=== PATIENT | female | born 1980 | race American Indian/Alaskan Native ===

== ENCOUNTER 2018-12-10 18:54 | Inpatient (IN) | payer BC ==
--- NOTE | 2018-12-10 19:22 | Event Note ---
ED Screening Note ED Screening Note: substernal CP that began three days ago had right arthroscopy no SOB (+) N/V that began today no diarrhea no radiation of pain LNMP last week PMHx Lupus, fibromyalgia allergy: vicodin non smoker + occ drinker no drug use This initial assessment/diagnostic orders/clinical plan/treatment(s) is/are subject to change based on patients health status, clinical progression and re- assessment by fellow clinical providers in the ED. Further treatment and workup at subsequent clinical providers discretion. Patient/guardian urged not to elope from the ED as their condition may be serious if not clinically assessed and managed. Initial orders include: CP protocol
[2018-12-10 20:01] LABS: Basophils % (Auto) 0.3 % (0.0-1.8); Hematocrit 36.5 % (30.3-42.9); Hemoglobin 12.5 gm/dl (10.1-14.3); Lymphocytes # (Auto) 0.8 K/mm3 (1.2-5.4); Lymphocytes % (Auto) 11.4 % (13.4-35.0); Mean Corpuscular HGB Conc 34 % (30-34); Mean Corpuscular Volume 89 fl (79-97); Monocytes # (Auto) 0.8 K/mm3 (0.0-0.8); Monocytes % (Auto) 10.9 % (0.0-7.3); Platelet Count 282 K/mm3 (140-440); Red Blood Count 4.08 M/mm3 (3.65-5.03); Red Cell Distribution Width 15.6 % (13.2-15.2)
[2018-12-10 20:18] LABS: Alanine Aminotransferase 25 units/L (7-56); Albumin 4.1 g/dL (3.9-5); BUN/Creatinine Ratio 6; Blood Urea Nitrogen 6 mg/dL (7-17); Calcium 9.4 mg/dL (8.4-10.2); Hemolysis Index 10
--- NOTE | 2018-12-10 21:36 | XRay Report ---
CHEST PA AND LATERAL VIEWS INDICATION: Chest Pain. COMPARISON: None FINDINGS: Support devices: None Heart: Normal Lungs/Pleura: No acute pulmonary or pleural findings. IMPRESSION: 1. Negative study Signer Name: Troy Courtney MD Signed: 12/10/2018 9:31 PM Workstation Name: [id number]
--- NOTE | 2018-12-10 22:02 | Emergency Department Report ---
ED Chest Pain HPI - General Chief Complaint: Chest Pain Stated Complaint: RT KNEE/CHEST PAIN Time Seen by Provider: 12/10/18 19:20 Source: patient Mode of arrival: Ambulatory Limitations: No Limitations - History of Present Illness Initial Comments: 37-year-old female with history of lupus, fibromyalgia presents to ED with complaint of chest pain and right leg pain and swelling. Patient reports recent lateral meniscus right knee surgery approximately 1.5 months ago. Patient states surgery went well, pain had resolved in the knee until one week ago. Patient states she began having pain in the back of her right knee, and swelling in the knee and right lower leg. 3 days ago, patient reports onset of sharp substernal chest pain, that was initially intermittent however is not constant, worse with deep breaths. Denies fever or cough. Patient reports she has had similar chest pain in the past, and was told it was inflammation due to her milla pedersen MD Complaint: chest pain -: days(s) (3) Onset: during rest Pain Location: substernal Pain Radiation: none Severity: moderate Severity scale (0 -10): 7 Quality: sharp Consistency: constant Improves With: nothing Worsens With: inspiration Context: recent surgery re: dyspnea. denies: nausea, vomting, diaphoresis Other Symptoms: leg swelling, palpitations. denies: cough, fever - Related Data Allergies Allergy/AdvReac Type Severity Reaction Status Date / Time acetaminophen [From Vicodin] Allergy Itching Verified 12/10/18 18:56 hydrocodone [From Vicodin] Allergy Itching Verified 12/10/18 18:56 shellfish derived Allergy Itching Verified 12/10/18 18:56 Heart Score - HEART Score History: Slightly suspicious EKG: Normal Age: < 45 Risk factors: No known risk factors Troponin: < normal limit HEART Score: 0 ED Review of Systems ROS: Stated complaint: RT KNEE/CHEST PAIN Other details as noted in HPI Comment: All other systems reviewed and negative Constitutional: denies: chills, fever Respiratory: shortness of breath. denies: cough Cardiovascular: chest pain, palpitations Musculoskeletal: other (reports right leg pain and swelling) ED Past Medical Hx - Past Medical History Previous Medical History?: Yes Hx Hypertension: No Hx CVA: No Hx Heart Attack/AMI: No Hx Congestive Heart Failure: No Hx Diabetes: No Hx Deep Vein Thrombosis: No Hx Pulmonary Embolism: No Hx GERD: No Hx Liver Disease: No Hx Renal Disease: No Hx of Cancer: No Hx Sickle Cell Disease: No Hx Arthritis: No Hx Headaches / Migraines: No Hx Seizures: No Hx Kidney Stones: No Hx Psychiatric Treatment: No Hx Asthma: Yes Hx COPD: No Hx Tuberculosis: No Hx Dementia: No Hx HIV: No - Surgical History Past Surgical History?: Yes Hx Coronary Stent: No Hx Open Heart Surgery: No Hx Pacemaker: No Hx Internal Defibrillator: No Hx Cholecystectomy: No Hx Appendectomy: No Hx Breast Surgery: No Additional Surgical History: right knee replacement - Social History Smoking Status: Never Smoker Substance Use Type: Alcohol ED Physical Exam - General Limitations: No Limitations General appearance: alert, in no apparent distress - Head Head exam: Present: atraumatic, normocephalic - Eye Eye exam: Present: normal appearance - ENT ENT exam: Present: mucous membranes moist - Neck Neck exam: Present: normal inspection - Respiratory Respiratory exam: Present: normal lung sounds bilaterally. Absent: respiratory distress - Cardiovascular Cardiovascular Exam: Present: normal rhythm, tachycardia - GI/Abdominal GI/Abdominal exam: Present: soft. Absent: distended - Extremities Exam Extremities exam: Present: other (right posterior knee tenderness; mild swelling to right lower leg; no erythema present) - Neurological Exam Neurological exam: Present: alert, oriented X3 - Psychiatric Psychiatric exam: Present: normal affect, normal mood - Skin Skin exam: Present: warm, dry, intact, normal color ED Course Vital Signs 12/10/18 12/10/18 12/10/18 19:18 19:21 22:15 Temperature 98.6 F 100.2 F H Pulse Rate 86 134 H Respiratory 14 14 33 H Rate Blood Pressure 132/82 134/77 Blood Pressure 134/77 [Right] O2 Sat by Pulse 100 100 99 Oximetry 12/10/18 12/10/18 12/11/18 22:30 23:37 00:01 Temperature Pulse Rate 136 H 129 H 137 H Respiratory 14 24 24 Rate Blood Pressure 121/78 145/97 150/99 Blood Pressure [Right] O2 Sat by Pulse Oximetry 12/11/18 00:59 Temperature 100.4 F H Pulse Rate 143 H Respiratory 26 H Rate Blood Pressure Blood Pressure 108/62 [Right] O2 Sat by Pulse 98 Oximetry ED Medical Decision Making - Lab Data Result diagrams: 12/11/18 00:48 12/11/18 00:48 - EKG Data -: EKG Interpreted by Me EKG shows normal: sinus rhythm, axis, intervals, QRS complexes, ST-T waves Rate: tachycardia - EKG Data Interpretation: no acute changes - Radiology Data Radiology results: report reviewed, image reviewed - Medical Decision Making - 37 yo F with right lower leg pain, chest pain, tachycardia - D-dimer elevated - V/Q scan obtained b/c CT scanner is broken and unable to perform CTAs (of note, pt has shellfish allergy reported but states has had IV contrast before w/o incident) - pt developed low-grade temp while in the ER, however, WBCs normal, CXR normal - EKG shows sinus tach, no ST changes; troponin negative - pt's tachycardia remains depite IV fluids and motrin - spoke w/ hospitalist, Dr Saleem, will admit the pt for further management - Differential Diagnosis PE, DVT, pneumonia, pulm edema, ACS Critical care attestation.: If time is entered above; I have spent that time in minutes in the direct care of this critically ill patient, excluding procedure time. ED Disposition Clinical Impression: Acute chest pain, Tachycardia Disposition: OP ADMIT IP TO THIS HOSP Is pt being admited?: Yes Condition: Stable Time of Disposition: 00:09
[2018-12-10] MEDS ORDERED: MORPHINE IV ONE (22:12)
[2018-12-10] MEDS ORDERED: ZOFRAN IV ONE (22:12)
[2018-12-10] MEDS ORDERED: NACL 0.9% 1000 ML 1,000 ML IV ONE (22:12)
--- NOTE | 2018-12-10 23:20 | Nuclear Medicine Report ---
Nuclear medicine ventilation/perfusion lung scan Indication: Shortness of breath Technique: 22.2 mCi of Xenon-133 were given by inhalation. 3.1 mCi of Tc 99m MAA were given by IV. Findings: Comparison with chest radiograph from earlier the same day. Wash-in, equilibrium, and wash-out phases of ventilation are normal. No air-trapping is seen. Perfusion images are unremarkable; specifically, no wedge-shaped, pleural-based, segmental defects ar e seen. Impression: Normal V/Q scan. Signer Name: Catracho Mccarthy MD Signed: 12/10/2018 11:15 PM Workstation Name: [id number]
[2018-12-10] MEDS ORDERED: IBUPROFEN PO ONE (23:42)
[2018-12-11 00:06] LABS: INR 1.2 (0.87-1.13); Partial Thromboplastin Time 30.2 Sec. (24.2-36.6)
[2018-12-11] MEDS ORDERED: NACL 0.9% 1000 ML 1,000 ML IV ONE (00:10)
[2018-12-11] MEDS ORDERED: TYLENOL PO PRN (00:32)
[2018-12-11] MEDS ORDERED: ZOFRAN IV PRN (00:32)
[2018-12-11] MEDS ORDERED: SODIUM CHLORIDE FLUSH SYRINGE 10 ML IV PRN ×2 (00:32)
--- NOTE | 2018-12-11 00:32 | History and Physical Report ---
History of Present Illness Date of examination: 12/11/18 Date of admission: 12/11/18 Chief complaint: cp History of present illness: 37-year-old female with history of lupus, fibromyalgia presents to ED with complaint of chest pain, right leg pain and swelling. Patient reports recent and lateral meniscus right knee surgery approximately 1.5 months ago. Patient states surgery went well, pain had resolved in the knee until one week ago. Patient states she began having pain in the back of her right knee, and swelling in the knee and right lower leg. 3 days ago, patient reports onset of sharp substernal chest pain, that was initially intermittent however is now constant, worse with deep breaths. Denies fever or cough. Patient reports she has had similar chest pain in the past, and was told it was inflammation due to her lupus. The patient's chest pain is reproducible with palpation. She denies any associated symptoms of shortness of breath, nausea or vomiting. No diaphoresis. Past History Past Medical History: other (fibromyalgia, SLE) Past Surgical History: Other (meniscus repair) Social history: no significant social history Family history: no significant family history Medications and Allergies Allergies Allergy/AdvReac Type Severity Reaction Status Date / Time acetaminophen [From Vicodin] Allergy Itching Verified 12/10/18 18:56 hydrocodone [From Vicodin] Allergy Itching Verified 12/10/18 18:56 shellfish derived Allergy Itching Verified 12/10/18 18:56 Active Meds: Active Medications Sodium Chloride (Nacl 0.9% 1000 Ml) 1,000 mls @ 999 mls/hr IV BOLUS ONE Stop: 12/11/18 01:10 Review of Systems All systems: negative Exam - Constitutional Vitals: Temp Pulse Resp BP Pulse Ox 100.2 F H 137 H 24 150/99 99 12/10/18 22:15 12/11/18 00:01 12/11/18 00:01 12/11/18 00:01 12/10/18 22:15 General appearance: Present: no acute distress, well-nourished - EENT Eyes: Present: PERRL ENT: hearing intact, clear oral mucosa - Neck Neck: Present: supple, normal ROM - Respiratory Respiratory effort: normal Respiratory: bilateral: CTA - Cardiovascular Heart Sounds: Present: S1 & S2. Absent: rub, click - Extremities Extremities: pulses symmetrical, No edema Peripheral Pulses: within normal limits - Abdominal General gastrointestinal: Present: soft, non-tender, non-distended, normal bowel sounds Female genitourinary: Present: normal - Integumentary Integumentary: Present: clear, warm, dry - Musculoskeletal Musculoskeletal: strength equal bilaterally, other (chest tenderness to palpation, positive Homans and tenderness to right calf) - Psychiatric Psychiatric: appropriate mood/affect, intact judgment & insight - Neurologic Neurologic: CNII-XII intact, moves all extremities Results - Labs CBC & Chem 7: 12/10/18 19:37 12/10/18 19:37 Labs: Laboratory Last Values WBC 7.4 K/mm3 (4.5-11.0) 12/10/18 19:37 RBC 4.08 M/mm3 (3.65-5.03) 12/10/18 19:37 Hgb 12.5 gm/dl (10.1-14.3) 12/10/18 19:37 Hct 36.5 % (30.3-42.9) 12/10/18 19:37 MCV 89 fl (79-97) 12/10/18 19:37 MCH 31 pg (28-32) 12/10/18 19:37 MCHC 34 % (30-34) 12/10/18 19:37 RDW 15.6 % (13.2-15.2) H 12/10/18 19:37 Plt Count 282 K/mm3 (140-440) 12/10/18 19:37 Lymph % (Auto) 11.4 % (13.4-35.0) L 12/10/18 19:37 [place] % (Auto) 10.9 % (0.0-7.3) H 12/10/18 19:37 Eos % (Auto) 0.0 % (0.0-4.3) 12/10/18 19:37 Baso % (Auto) 0.3 % (0.0-1.8) 12/10/18 19:37 Lymph # 0.8 K/mm3 (1.2-5.4) L 12/10/18 19:37 [place] # 0.8 K/mm3 (0.0-0.8) 12/10/18 19:37 Eos # 0.0 K/mm3 (0.0-0.4) 12/10/18 19:37 Baso # 0.0 K/mm3 (0.0-0.1) 12/10/18 19:37 Seg Neutrophils % 77.4 % (40.0-70.0) H 12/10/18 19:37 Seg Neutrophils # 5.7 K/mm3 (1.8-7.7) 12/10/18 19:37 PT 14.9 Sec. (12.2-14.9) 12/10/18 23:44 INR 1.20 (0.87-1.13) H 12/10/18 23:44 APTT 30.2 Sec. (24.2-36.6) 12/10/18 23:44 362.58 ng/mlDDU (0-234) H 12/10/18 19:37 Sodium 133 mmol/L (137-145) L 12/10/18 19:37 Potassium 4.0 mmol/L (3.6-5.0) 12/10/18 19:37 Chloride 99.6 mmol/L (98-107) 12/10/18 19:37 Carbon Dioxide 21 mmol/L (22-30) L 12/10/18 19:37 16 mmol/L 12/10/18 19:37 BUN 6 mg/dL (7-17) L 12/10/18 19:37 1.0 mg/dL (0.7-1.2) 12/10/18 19:37 Estimated GFR > 60 ml/min 12/10/18 19:37 6 % 12/10/18 19:37 Glucose 100 mg/dL (65-100) 12/10/18 19:37 Calcium 9.4 mg/dL (8.4-10.2) 12/10/18 19:37 0.50 mg/dL (0.1-1.2) 12/10/18 19:37 AST 30 units/L (5-40) 12/10/18 19:37 ALT 25 units/L (7-56) 12/10/18 19:37 38 units/L (35-129) 12/10/18 19:37 < 0.010 ng/mL (0.00-0.029) 12/10/18 22:26 8.8 g/dL (6.3-8.2) H 12/10/18 19:37 4.1 g/dL (3.9-5) 12/10/18 19:37 0.9 % 12/10/18 19:37 HCG, Qual Negative (Negative) 12/10/18 19:37 Assessment and Plan Assessment and plan: Chest pain. Etiology likely secondary to costochondritis +/- lupus flare. Chest x-ray negative. Costochondritis. Toradol/pain control. Elevated d-dimer. VQ scan negative. Check lower extremity Dopplers. Sinus tachycardia. Monitor on telemetry. Etiology may secondary to physiologic response to pain. Right lower extremity pain. As above. SLE. Continue home medications. Fibromyalgia. Supportive care.
[2018-12-11 01:10] LABS: Basophils % (Auto) 0.2 % (0.0-1.8); Hematocrit 34.5 % (30.3-42.9); Hemoglobin 11.6 gm/dl (10.1-14.3); Lymphocytes % (Auto) 11.6 % (13.4-35.0); Mean Corpuscular HGB Conc 34 % (30-34); Mean Corpuscular Volume 92 fl (79-97); Monocytes # (Auto) 0.7 K/mm3 (0.0-0.8); Monocytes % (Auto) 8.5 % (0.0-7.3); Platelet Count 242 K/mm3 (140-440); Red Blood Count 3.77 M/mm3 (3.65-5.03); Red Cell Distribution Width 15.2 % (13.2-15.2)
[2018-12-11] MEDS ORDERED: TORADOL ONE (01:27)
[2018-12-11] MEDS: TORADOL IV SCH ×6 (01:28→21:48)
[2018-12-11 01:33] LABS: BUN/Creatinine Ratio 8; Blood Urea Nitrogen 7 mg/dL (7-17); Calcium 8.8 mg/dL (8.4-10.2); Hemolysis Index 1
[2018-12-11] MEDS ORDERED: NACL 0.9% 1000 ML 1,000 ML ONE (01:36)
[2018-12-11] MEDS: NACL 0.9% 1000 ML 1,000 ML IV SCH ×3 (03:48→17:16)
[2018-12-11] MEDS: SODIUM CHLORIDE FLUSH SYRINGE 10 ML IV SCH ×2 (11:41→21:49)
[2018-12-11] MEDS: LEVAQUIN 750MG/150ML 750 MG/150 ML BAG IV SCH (11:50)
--- NOTE | 2018-12-11 12:44 | Vascular Lab Report ---
DUPLEX DOPPLER LOWER EXTREMITY VEINS, BILATERAL INDICATION: Bilateral calf pain.. Evaluate for DVT, lupus TECHNIQUE: Duplex doppler imaging was performed through the veins of both lower extremities using venous neyda che and other maneuvers. COMPARISON: No relevant prior imaging study available. FINDINGS: Right Common femoral vein: Negative. Right Superficial femoral vein: Negative. Right Popliteal vein: Negative. Right Calf veins: Negative. Left Common femoral vein: Negative. Left Superficial femoral vein: Negative. Left Popliteal vein: Negative. Left Calf veins: Negative. Additional findings: None.. IMPRESSION: No sonographic evidence for DVT in either lower extremity. Signer Name: Iek Horton Jr, MD Signed: 12/11/2018 12:39 PM Workstation Name: [id number]
[2018-12-11] MEDS: LOVENOX SUB-Q SCH (14:01)
--- NOTE | 2018-12-11 14:48 | Consultation ---
History of Present Illness Consult date: 12/11/18 Requesting physician: DUY SALEME Consult reason: chest pain History of present illness: The pt is a 37-year-old female with history of lupus. She is previously unknown to our practice. She presented with c/o chest pain for the past 4 days and right knee swelling and pain for the past 1 week. Patient reports recent lateral meniscus right knee surgery approximately 1.5 months ago. Patient states surgery went well, pain had resolved in the knee until one week ago. Patient states she began having pain in the back of her right knee, and swelling in the knee and right lower leg. She was noted to run a low grade fever overnight last night. Her right knee is quite swollen, very tender and warm to the touch. 4 days ago, patient reports onset of sharp substernal chest pain that is aggravated by deep inspiration and by lying flat. The pain is alleviated by sitting upright. Pt denies any prior cardiac issues or cardiac w/u. She is noted to be in sinus tachycardia since admission. She denies any palpitations, n/v, diaphoresis, dizziness or syncope. Pt states her primary complaint is knee pain. Past History Past Medical History: other (lupus) Past Surgical History: Other (meniscus repair) Social history: no significant social history. denies: smoking, alcohol abuse, prescription drug abuse Family history: no significant family history Medications and Allergies Allergies Allergy/AdvReac Type Severity Reaction Status Date / Time acetaminophen [From Vicodin] Allergy Itching Verified 12/10/18 18:56 hydrocodone [From Vicodin] Allergy Itching Verified 12/10/18 18:56 shellfish derived Allergy Itching Verified 12/10/18 18:56 Active Meds: Active Medications Acetaminophen (Tylenol) 650 mg PO Q4H PRN PRN Reason: Pain MILD(1-3)/Fever >100.5/KYLE Enoxaparin Sodium (Lovenox) 40 mg SUB-Q QDAY JORGE Last Admin: 12/11/18 14:01 Dose: 40 mg Documented by: Sodium Chloride (Nacl 0.9% 1000 Ml) 1,000 mls @ 100 mls/hr IV DIRECT JORGE Last Admin: 12/11/18 03:48 Dose: 100 mls/hr Documented by: Levofloxacin/Dextrose (Levaquin 750mg/150ml) 750 mg in 150 mls @ 100 mls/hr IV Q24HR [facility]; Protocol Last Admin: 12/11/18 11:50 Dose: 100 mls/hr Documented by: Ketorolac Tromethamine (Toradol) 15 mg IV Q4H [facility] Stop: 12/16/18 00:59 Last Admin: 12/11/18 14:00 Dose: 15 mg Documented by: Morphine Sulfate (Morphine) 2 mg IV Q4H PRN PRN Reason: Pain, Moderate (4-6) Ondansetron HCl (Zofran) 4 mg IV Q8H PRN PRN Reason: Nausea And Vomiting Sodium Chloride (Sodium Chloride Flush Syringe 10 Ml) 10 ml IV BID [facility] Last Admin: 12/11/18 11:41 Dose: 10 ml Documented by: Sodium Chloride (Sodium Chloride Flush Syringe 10 Ml) 10 ml IV PRN PRN PRN Reason: LINE FLUSH Review of Systems Constitutional: fever, chills, no weight loss, no weight gain Ears, nose, mouth and throat: no ear pain, no nose pain, no sinus pressure, no sinus pain Cardiovascular: chest pain, no orthopnea, no palpitations, no rapid/irregular h eart beat, no edema, no syncope, no lightheadedness, no shortness of breath, no dyspnea on exertion, no high blood pressure Respiratory: no cough, no shortness of breath, no dyspnea on exertion, no congestion, no wheezing, no pain on inspiration Gastrointestinal: no abdominal pain, no nausea, no vomiting, no diarrhea, no constipation, no change in bowel habits Genitourinary Female: no pelvic pain, no flank pain, no dysuria, no urinary frequency, no urgency Musculoskeletal: hot joints (right knee), other (right knee swelling and pain), no neck stiffness, no neck pain, no shooting arm pain, no arm numbness/tingling, no low back pain Integumentary: no sores, no wounds Neurological: no head injury, no paralysis, no weakness, no parathesias, no numbness, no tingling, no seizures, no syncope Psychiatric: no anxiety Endocrine: no cold intolerance, no heat intolerance Hematologic/Lymphatic: no easy bruising, no easy bleeding Allergic/Immunologic: no urticaria, no wheezing Physical Examination Vital Signs Resp Pulse Ox 14 100 12/10/18 19:18 12/10/18 19:18 General appearance: no acute distress HEENT: Positive: PERRL, Normocephaly, Mucus Membranes Moist Neck: Positive: neck supple, trachea midline Cardiac: Positive: Regular Rhythm, S1/S2, Tachycardia Lungs: Positive: clear to auscultation Neuro: Positive: Grossly Intact Abdomen: Negative: Tender Skin: Negative: Rash Musculoskeletal: other (right knee swelling and pain) Extremities: Present: Other (right knee swelling and pain) Results 12/11/18 00:48 12/11/18 00:48 Cardiac Enzymes 12/10/18 Range/Units 19:37 AST 30 (5-40) units/L Coagulation 12/10/18 Range/Units 23:44 PT 14.9 (12.2-14.9) Sec. INR 1.20 H (0.87-1.13) APTT 30.2 (24.2-36.6) Sec. CBC 12/10/18 12/11/18 Range/Units 19:37 00:48 WBC 7.4 8.3 (4.5-11.0) K/mm3 RBC 4.08 3.77 (3.65-5.03) M/mm3 Hgb 12.5 11.6 (10.1-14.3) gm/dl Hct 36.5 34.5 (30.3-42.9) % Plt Count 282 242 (140-440) K/mm3 Lymph # 0.8 L 1.0 L (1.2-5.4) K/mm3 [place] # 0.8 0.7 (0.0-0.8) K/mm3 Eos # 0.0 0.0 (0.0-0.4) K/mm3 Baso # 0.0 0.0 (0.0-0.1) K/mm3 Comprehensive Metabolic Panel 12/10/18 12/11/18 Range/Units 19:37 00:48 Sodium 133 L 135 L (137-145) mmol/L Potassium 4.0 4.1 (3.6-5.0) mmol/L Chloride 99.6 101.4 (98-107) mmol/L Carbon Dioxide 21 L 23 (22-30) mmol/L BUN 6 L 7 (7-17) mg/dL Creatinine 1.0 0.9 (0.7-1.2) mg/dL Glucose 100 140 H (65-100) mg/dL Calcium 9.4 8.8 (8.4-10.2) mg/dL AST 30 (5-40) units/L ALT 25 (7-56) units/L Alkaline Phosphatase 38 (35-129) units/L Total Protein 8.8 H (6.3-8.2) g/dL Albumin 4.1 (3.9-5) g/dL - Imaging and Cardiology Echo: pending EKG: report reviewed, image reviewed EKG interpretations - Telemetry EKG Rhythm: Sinus Tachycardia - EKG Sinus rhythms and dysrhythmias: sinus tachycardia Assessment and Plan Pt presented with c/o atypical chest pain and right knee pain. At this point, pt states her primary complaint is knee pain. AMI ruled out. Obtain echo, r/o pericardial effusion. Pt reports significant pain and swelling to right knee, she reports recent lateral meniscus right knee surgery approximately 1.5 months ago. Her knee is very tender to touch and warm - ? septic knee. Blood cultures in process. Recommend orthopedic consultation per primary. D/w Dr. Saleem. The patient has been seen in conjunction with Dr. Calero who agrees with the assessment and plan of care. - Patient Problems (1) Chest pain Current Visit: Yes Status: Acute (2) Sinus tachycardia Current Visit: Yes Status: Acute (3) Fever Current Visit: Yes Status: Acute (4) Pain and swelling of right knee Current Visit: Yes Status: Acute (5) History of lupus Current Visit: Yes Status: Acute
[2018-12-11] MEDS: MORPHINE IV PRN (20:21)
[2018-12-12] MEDS: IBUPROFEN PO PRN ×2 (00:30→19:16)
[2018-12-12] MEDS: TORADOL IV SCH ×6 (00:32→22:20)
[2018-12-12 05:09] LABS: Hematocrit 32.3 % (30.3-42.9); Hemoglobin 10.9 gm/dl (10.1-14.3); Mean Corpuscular HGB Conc 34 % (30-34); Mean Corpuscular Volume 91 fl (79-97); Platelet Count 212 K/mm3 (140-440); Red Blood Count 3.55 M/mm3 (3.65-5.03); Red Cell Distribution Width 15.2 % (13.2-15.2)
[2018-12-12 05:18] LABS: BUN/Creatinine Ratio 8; Blood Urea Nitrogen 6 mg/dL (7-17); Calcium 8.5 mg/dL (8.4-10.2); Hemolysis Index 12
[2018-12-12] MEDS: MORPHINE IV PRN ×3 (06:10→22:17)
[2018-12-12] MEDS: NACL 0.9% 1000 ML 1,000 ML IV SCH ×3 (06:10→17:51)
--- NOTE | 2018-12-12 09:28 | Progress Note ---
Assessment and Plan Assessment and plan: Chest pain. Etiology likely secondary to costochondritis +/- lupus flare. Chest x-ray negative. Follow-up echocardiogram to rule out pericarditis/pericardial effusion. Costochondritis. Toradol/pain control. Elevated d-dimer. VQ scan negative. Lower extremity Dopplers negative for DVT. Sinus tachycardia. Monitor on telemetry. Etiology likely secondary to physiologic response to pain. Right knee pain with effusion. Orthopedics consult. ? Septic arthritis. Orthopedics consultation pending. SIRS. Patient still with significant fever. Etiology may be secondary to lupus flare versus septic/inflammatory knee. Await orthopedics consultation. Continue empiric antibodies. SLE. Continue home medications. Fibromyalgia. Supportive care. History Interval history: Patient complains of right knee pain and swelling Hospitalist Physical - Constitutional Vitals: Temp Pulse Resp BP Pulse Ox 99.2 F 127 H 18 95/62 98 12/12/18 07:47 12/12/18 07:47 12/12/18 07:47 12/12/18 07:47 12/12/18 07:47 General appearance: Present: no acute distress - EENT Eyes: Present: PERRL, EOM intact ENT: hearing intact, clear oral mucosa, dentition normal - Neck Neck: Present: supple, normal ROM - Respiratory Respiratory effort: normal Respiratory: bilateral: CTA - Cardiovascular Rhythm: regular Heart Sounds: Present: S1 & S2. Absent: gallop, rub - Extremities Extremities: no ischemia, No edema, Full ROM - Abdominal General gastrointestinal: soft, non-tender, non-distended, normal bowel sounds - Integumentary Integumentary: Present: clear, warm, dry - Neurologic Neurologic: CNII-XII intact, moves all extremities Results - Labs CBC & Chem 7: 12/12/18 04:19 12/12/18 04:19 Labs: Laboratory Last Values WBC 9.1 K/mm3 (4.5-11.0) 12/12/18 04:19 RBC 3.55 M/mm3 (3.65-5.03) L 12/12/18 04:19 Hgb 10.9 gm/dl (10.1-14.3) 12/12/18 04:19 Hct 32.3 % (30.3-42.9) 12/12/18 04:19 MCV 91 fl (79-97) 12/12/18 04:19 MCH 31 pg (28-32) 12/12/18 04:19 MCHC 34 % (30-34) 12/12/18 04:19 RDW 15.2 % (13.2-15.2) 12/12/18 04:19 Plt Count 212 K/mm3 (140-440) 12/12/18 04:19 Lymph % (Auto) Not Reportable 12/12/18 04:19 [place] % (Auto) Not Reportable 12/12/18 04:19 Eos % (Auto) Not Reportable 12/12/18 04:19 Baso % (Auto) Not Reportable 12/12/18 04:19 Lymph # Not Reportable 12/12/18 04:19 [place] # Not Reportable 12/12/18 04:19 Eos # Not Reportable 12/12/18 04:19 Baso # Not Reportable 12/12/18 04:19 Seg Neutrophils % 79.7 % (40.0-70.0) H 12/11/18 00:48 Seg Neutrophils # Not Reportable 12/12/18 04:19 PT 14.9 Sec. (12.2-14.9) 12/10/18 23:44 INR 1.20 (0.87-1.13) H 12/10/18 23:44 APTT 30.2 Sec. (24.2-36.6) 12/10/18 23:44 362.58 ng/mlDDU (0-234) H 12/10/18 19:37 Sodium 137 mmol/L (137-145) 12/12/18 04:19 Potassium 3.9 mmol/L (3.6-5.0) 12/12/18 04:19 Chloride 107.6 mmol/L (98-107) H 12/12/18 04:19 Carbon Dioxide 19 mmol/L (22-30) L 12/12/18 04:19 14 mmol/L 12/12/18 04:19 BUN 6 mg/dL (7-17) L 12/12/18 04:19 0.8 mg/dL (0.7-1.2) 12/12/18 04:19 Estimated GFR > 60 ml/min 12/12/18 04:19 8 % 12/12/18 04:19 Glucose 110 mg/dL (65-100) H 12/12/18 04:19 Lactic Acid 0.80 mmol/L (0.7-2.0) 12/11/18 07:14 Calcium 8.5 mg/dL (8.4-10.2) 12/12/18 04:19 0.50 mg/dL (0.1-1.2) 12/10/18 19:37 AST 30 units/L (5-40) 12/10/18 19:37 ALT 25 units/L (7-56) 12/10/18 19:37 38 units/L (35-129) 12/10/18 19:37 < 0.010 ng/mL (0.00-0.029) 12/11/18 05:04 8.8 g/dL (6.3-8.2) H 12/10/18 19:37 4.1 g/dL (3.9-5) 12/10/18 19:37 0.9 % 12/10/18 19:37 HCG, Qual Negative (Negative) 12/10/18 19:37 Active Medications - Current Medications Current Medications: Generic Name Dose Route Start Last Admin Trade Name Freq PRN Reason Stop Dose Admin Acetaminophen 650 mg 12/11/18 00:32 Tylenol PO Q4H PRN Pain MILD(1-3)/Fever >100.5/KYLE Enoxaparin Sodium 40 mg 12/11/18 10:00 12/11/18 14:01 Lovenox SUB-Q 40 mg QDAY JORGE Administration Sodium Chloride 1,000 mls @ 100 mls/hr 12/11/18 01:00 12/12/18 06:10 Nacl 0.9% 1000 Ml IV 100 mls/hr DIRECT JORGE Administration Levofloxacin/Dextrose 750 mg in 150 mls @ 100 mls/hr 12/11/18 10:00 12/11/18 11:50 Levaquin 750mg/150ml IV 100 mls/hr Q24HR JORGE Administration Protocol Ibuprofen 600 mg 12/11/18 23:51 12/12/18 00:30 Ibuprofen PO 600 mg Q6H PRN Administration Pain and temp >100.5 Ketorolac Tromethamine 15 mg 12/11/18 01:00 12/12/18 06:11 Toradol IV 12/16/18 00:59 Not Given Q4H JORGE Morphine Sulfate 2 mg 12/11/18 00:32 12/12/18 06:10 Morphine IV 2 mg Q4H PRN Administration Pain, Moderate (4-6) Ondansetron HCl 4 mg 12/11/18 00:32 Zofran IV Q8H PRN Nausea And Vomiting Sodium Chloride 10 ml 12/11/18 10:00 12/11/18 21:49 Sodium Chloride Flush Syringe 10 Ml IV 10 ml BID JORGE Administration Sodium Chloride 10 ml 12/11/18 00:32 Sodium Chloride Flush Syringe 10 Ml IV PRN PRN LINE FLUSH
[2018-12-12] MEDS: LEVAQUIN 750MG/150ML 750 MG/150 ML BAG IV SCH (10:15)
[2018-12-12] MEDS: SODIUM CHLORIDE FLUSH SYRINGE 10 ML IV SCH ×2 (10:16→22:08)
[2018-12-12] MEDS: LOVENOX SUB-Q SCH (10:16)
--- NOTE | 2018-12-12 10:27 | Progress Note ---
Assessment and Plan 37-year-old female History of lupus Atypical severe chest pain Located mostly over the sternum Echocardiogram12/18: EF 40-45%, mild tricuspid regurgitation, no pericardial effusion Negative cardiac enzymes EKG sinus tachycardia and no acute ST segment changes VQ perfusion scan negative for pulmonary embolus Concern for lupus flare may require adjustment to rheumatological medications right knee swelling/pain recent lateral meniscus right knee surgery fever Tmax 102.5 Subjective Date of service: 12/12/18 Principal diagnosis: chest pain and right knee pain Interval history: Patient sitting up intubated complaining of severe sternal chest pain. She reports her current knee hurts but unfortunately her chest pain has gotten significantly worse since her admission. Overnight the patient had a temperature while 2.5 and currently she is tachycardic with a pulse of 127 bpm. Her blood pressure is 95/62 mmHg. D-dimer is 362 and a cardiac troponins are negative 2 with blood cultures pending. Objective Vital Signs Temp Pulse Pulse Resp Resp Resp BP 12/12/18 10:15 20 12/12/18 10:14 10 L 12/12/18 07:47 99.2 F 127 H 18 95/62 12/12/18 06:40 18 12/12/18 06:11 18 12/12/18 06:10 18 12/12/18 04:02 99.1 F 132 H 20 107/66 12/12/18 01:30 18 12/12/18 00:34 18 12/12/18 00:32 18 12/12/18 00:30 18 12/11/18 23:45 102.5 F H 144 H 20 12/11/18 22:18 18 12/11/18 22:10 133 H 18 12/11/18 21:48 18 12/11/18 20:51 18 12/11/18 20:46 141 H 12/11/18 20:21 18 12/11/18 20:00 99.2 F 133 H 20 12/11/18 17:43 18 12/11/18 17:19 99.1 F 62 18 129/81 12/11/18 17:13 20 12/11/18 15:00 12/11/18 14:30 20 12/11/18 14:00 20 20 12/11/18 12:07 122 H 18 114/78 12/11/18 10:30 20 BP Pulse Ox 12/12/18 10:15 12/12/18 10:14 12/12/18 07:47 98 12/12/18 06:40 12/12/18 06:11 12/12/18 06:10 12/12/18 04:02 100 12/12/18 01:30 12/12/18 00:34 12/12/18 00:32 12/12/18 00:30 12/11/18 23:45 110/64 98 12/11/18 22:18 12/11/18 22:10 97 12/11/18 21:48 12/11/18 20:51 12/11/18 20:46 12/11/18 20:21 12/11/18 20:00 121/77 97 12/11/18 17:43 12/11/18 17:19 99 12/11/18 17:13 12/11/18 15:00 100 12/11/18 14:30 12/11/18 14:00 12/11/18 12:07 98 12/11/18 10:30 - Physical Examination HEENT: Positive: PERRL, Normocephaly, Mucus Membranes Moist Neck: Positive: neck supple, trachea midline Cardiac: Positive: Tachycardia Lungs: Positive: clear to auscultation, Decreased Breath Sounds Neuro: Positive: Grossly Intact Abdomen: Positive: Decreased Bowel Sounds. Negative: Tender Skin: Negative: Rash Musculoskeletal: other (right knee swelling and pain, tenderness over sternum) Extremities: Present: Other (right knee swelling and pain) - Labs and Meds CBC 12/12/18 Range/Units 04:19 WBC 9.1 (4.5-11.0) K/mm3 RBC 3.55 L (3.65-5.03) M/mm3 Hgb 10.9 (10.1-14.3) gm/dl Hct 32.3 (30.3-42.9) % Plt Count 212 (140-440) K/mm3 Lymph # Not Reportable [place] # Not Reportable Eos # Not Reportable Baso # Not Reportable Comprehensive Metabolic Panel 12/12/18 Range/Units 04:19 Sodium 137 (137-145) mmol/L Potassium 3.9 (3.6-5.0) mmol/L Chloride 107.6 H (98-107) mmol/L Carbon Dioxide 19 L (22-30) mmol/L BUN 6 L (7-17) mg/dL Creatinine 0.8 (0.7-1.2) mg/dL Glucose 110 H (65-100) mg/dL Calcium 8.5 (8.4-10.2) mg/dL - Imaging and Cardiology EKG: report reviewed, image reviewed Stress echo: pending Echo: pending - EKG Sinus rhythms and dysrhythmias: sinus tachycardia
[2018-12-12 11:15] LABS: Band Neutrophils # (Manual) 0.1 K/mm3; Basophils % (Manual) 0 % (0.0-1.8); Eosinophils % (Manual) 0 % (0.0-4.3); Total Cells Counted 100
[2018-12-12 11:16] LABS: Ovalocytes Few; Platelet Estimate Consistent w Auto
[2018-12-12] MEDS: SOLU-Medrol IV SCH (17:49)
--- NOTE | 2018-12-12 21:07 | XRay Report ---
Right knee 3 views INDICATION: Right knee pain. IMPRESSION: No fracture or subluxation of the right knee is identified. Large right knee effusion. Un derlying ligamentous injury cannot be excluded. Signer Name: Arnulfo Phillips MD Signed: 12/12/2018 9:03 PM Workstation Name: [id number]
[2018-12-13] MEDS: TORADOL IV SCH ×6 (01:14→22:51)
[2018-12-13] MEDS: NACL 0.9% 1000 ML 1,000 ML IV SCH (03:53)
[2018-12-13] MEDS: SOLU-Medrol IV SCH ×2 (06:13→18:00)
[2018-12-13] MEDS: LOVENOX SUB-Q SCH (11:14)
[2018-12-13] MEDS: LEVAQUIN 750MG/150ML 750 MG/150 ML BAG IV SCH (11:15)
[2018-12-13] MEDS: SODIUM CHLORIDE FLUSH SYRINGE 10 ML IV SCH ×2 (11:17→22:51)
--- NOTE | 2018-12-13 11:38 | Progress Note ---
Assessment and Plan 37-year-old female History of lupus Atypical severe chest pain Located mostly over the sternum Echocardiogram12/18: EF 40-45%, mild tricuspid regurgitation, no pericardial effusion Negative cardiac enzymes EKG sinus tachycardia and no acute ST segment changes VQ perfusion scan negative for pulmonary embolus Concern for lupus flare Improved since starting steroids right knee swelling/pain recent lateral meniscus right knee surgery fever Subjective Date of service: 12/13/18 Principal diagnosis: chest pain and right knee pain Interval history: Patient sitting up in bed feels much better since starting steroids. Objective Vital Signs Temp Pulse Pulse Resp Resp Resp BP 12/13/18 08:24 98.0 F 82 18 12/13/18 05:29 18 12/13/18 04:59 18 12/13/18 03:55 97.8 F 114 H 20 99/60 12/13/18 01:44 18 12/13/18 01:14 18 12/12/18 23:32 98.2 F 110 H 20 111/69 12/12/18 22:47 18 12/12/18 22:37 122 H 18 12/12/18 22:26 18 18 12/12/18 22:20 18 12/12/18 22:17 18 12/12/18 20:16 18 12/12/18 20:08 129 H 12/12/18 19:16 16 12/12/18 19:15 99.5 F 138 H 20 149/85 12/12/18 17:10 20 12/12/18 17:01 99.0 F 18 120/71 12/12/18 16:40 20 12/12/18 14:00 20 20 12/12/18 13:05 20 12/12/18 12:35 20 12/12/18 12:25 99.1 F 133 H 18 BP Pulse Ox 12/13/18 08:24 150/50 98 12/13/18 05:29 12/13/18 04:59 12/13/18 03:55 97 12/13/18 01:44 12/13/18 01:14 12/12/18 23:32 99 12/12/18 22:47 12/12/18 22:37 100 12/12/18 22:26 12/12/18 22:20 12/12/18 22:17 12/12/18 20:16 12/12/18 20:08 12/12/18 19:16 12/12/18 19:15 100 12/12/18 17:10 12/12/18 17:01 12/12/18 16:40 12/12/18 14:00 12/12/18 13:05 12/12/18 12:35 12/12/18 12:25 99 - Physical Examination HEENT: Positive: PERRL, Normocephaly, Mucus Membranes Moist Neck: Positive: neck supple, trachea midline Cardiac: Positive: Regular Rhythm, Tachycardia Lungs: Positive: clear to auscultation, Normal Breath Sounds Neuro: Positive: Grossly Intact Abdomen: Positive: Decreased Bowel Sounds. Negative: Tender Skin: Negative: Rash Musculoskeletal: other (right knee swelling and pain, tenderness over sternum) Extremities: Present: Other (right knee swelling and pain) - Imaging and Cardiology EKG: report reviewed, image reviewed Stress echo: pending Echo: pending - EKG Sinus rhythms and dysrhythmias: sinus tachycardia
--- NOTE | 2018-12-13 12:01 | Progress Note ---
Assessment and Plan Assessment and plan: Chest pain. Etiology likely secondary to costochondritis +/- lupus flare. Chest x-ray negative. Echocardiogram EF 40-45%, mild tricuspid regurgitation, no pericardial effusion Costochondritis. Toradol/pain control. Continue Solu-Medrol twice a day Elevated d-dimer. VQ scan negative. Lower extremity Dopplers negative for DVT. Sinus tachycardia. Monitor on telemetry. Etiology likely secondary to physiologic response to pain. Right knee pain with effusion. Orthopedics consult. ? Septic arthritis. Orthopedics consultation pending. SIRS. Patient still with significant fever. Etiology may be secondary to lupus flare versus septic/inflammatory knee. Await orthopedics consultation. Continue empiric antibodies. SLE flare. Continue Solu-Medrol twice a day Fibromyalgia. Supportive care. History Interval history: Patient reports improvement in her chest pain. Hospitalist Physical - Constitutional Vitals: Temp Pulse Resp BP Pulse Ox 98.0 F 82 18 150/50 98 12/13/18 08:24 12/13/18 08:24 12/13/18 08:24 12/13/18 08:24 12/13/18 08:24 General appearance: Present: no acute distress - EENT Eyes: Present: PERRL, EOM intact ENT: hearing intact, clear oral mucosa, dentition normal - Neck Neck: Present: supple, normal ROM - Respiratory Respiratory effort: normal Respiratory: bilateral: CTA - Cardiovascular Rhythm: regular Heart Sounds: Present: S1 & S2. Absent: gallop, rub - Extremities Extremities: no ischemia, No edema, Full ROM - Abdominal General gastrointestinal: soft, non-tender, non-distended, normal bowel sounds - Integumentary Integumentary: Present: clear, warm, dry - Neurologic Neurologic: CNII-XII intact, moves all extremities Results - Labs CBC & Chem 7: 12/12/18 04:19 12/12/18 04:19 Labs: Laboratory Last Values WBC 9.1 K/mm3 (4.5-11.0) 12/12/18 04:19 RBC 3.55 M/mm3 (3.65-5.03) L 12/12/18 04:19 Hgb 10.9 gm/dl (10.1-14.3) 12/12/18 04:19 Hct 32.3 % (30.3-42.9) 12/12/18 04:19 MCV 91 fl (79-97) 12/12/18 04:19 MCH 31 pg (28-32) 12/12/18 04:19 MCHC 34 % (30-34) 12/12/18 04:19 RDW 15.2 % (13.2-15.2) 12/12/18 04:19 Plt Count 212 K/mm3 (140-440) 12/12/18 04:19 Lymph % (Auto) Not Reportable 12/12/18 04:19 [place] % (Auto) Not Reportable 12/12/18 04:19 Eos % (Auto) Not Reportable 12/12/18 04:19 Baso % (Auto) Not Reportable 12/12/18 04:19 Lymph # Not Reportable 12/12/18 04:19 [place] # Not Reportable 12/12/18 04:19 Eos # Not Reportable 12/12/18 04:19 Baso # Not Reportable 12/12/18 04:19 Add Manual Diff Complete 12/12/18 04:19 Total Counted 100 12/12/18 04:19 Seg Neutrophils % 79.7 % (40.0-70.0) H 12/11/18 00:48 Seg Neuts % (Manual) 78.0 % (40.0-70.0) H 12/12/18 04:19 1.0 % 12/12/18 04:19 18.0 % (13.4-35.0) 12/12/18 04:19 Reactive Lymphs % (Man) 1.0 % 12/12/18 04:19 2.0 % (0.0-7.3) 12/12/18 04:19 0 % (0.0-4.3) 12/12/18 04:19 0 % (0.0-1.8) 12/12/18 04:19 0 % 12/12/18 04:19 0 % 12/12/18 04:19 0 % 12/12/18 04:19 0 % 12/12/18 04:19 Nucleated RBC % Not Reportable 12/12/18 04:19 Seg Neutrophils # Not Reportable 12/12/18 04:19 Seg Neutrophils # Man 7.1 K/mm3 (1.8-7.7) 12/12/18 04:19 Band Neutrophils # 0.1 K/mm3 12/12/18 04:19 1.6 K/mm3 (1.2-5.4) 12/12/18 04:19 Abs React Lymphs (Man) 0.1 K/mm3 12/12/18 04:19 0.2 K/mm3 (0.0-0.8) 12/12/18 04:19 0.0 K/mm3 (0.0-0.4) 12/12/18 04:19 0.0 K/mm3 (0.0-0.1) 12/12/18 04:19 0.0 K/mm3 12/12/18 04:19 0.0 K/mm3 12/12/18 04:19 0.0 K/mm3 12/12/18 04:19 Blast Cells # 0.0 K/mm3 12/12/18 04:19 WBC Morphology Not Reportable 12/12/18 04:19 Hypersegmented Neuts Not Reportable 12/12/18 04:19 Hyposegmented Neuts Not Reportable 12/12/18 04:19 Hypogranular Neuts Not Reportable 12/12/18 04:19 Not Reportable 12/12/18 04:19 Not Reportable 12/12/18 04:19 Not Reportable 12/12/18 04:19 Not Reportable 12/12/18 04:19 Not Reportable 12/12/18 04:19 Not Reportable 12/12/18 04:19 Consistent w auto 12/12/18 04:19 Not Reportable 12/12/18 04:19 Plt Clumps, EDTA Not Reportable 12/12/18 04:19 Not Reportable 12/12/18 04:19 Not Reportable 12/12/18 04:19 Not Reportable 12/12/18 04:19 Plt Morphology Comment Not Reportable 12/12/18 04:19 RBC Morphology Not Reportable 12/12/18 04:19 Dimorphic RBCs Not Reportable 12/12/18 04:19 Not Reportable 12/12/18 04:19 Not Reportable 12/12/18 04:19 Not Reportable 12/12/18 04:19 Not Reportable 12/12/18 04:19 Not Reportable 12/12/18 04:19 Not Reportable 12/12/18 04:19 Not Reportable 07/13/19 04:19 Not Reportable 12/12/18 04:19 Not Reportable 12/12/18 04:19 Not Reportable 12/12/18 04:19 Not Reportable 12/12/18 04:19 Few 12/12/18 04:19 Not Reportable 12/12/18 04:19 Not Reportable 12/12/18 04:19 Not Reportable 12/12/18 04:19 Not Reportable 12/12/18 04:19 Not Reportable 12/12/18 04:19 Not Reportable 12/12/18 04:19 Not Reportable 12/12/18 04:19 Acanthocytes (Spur) Not Reportable 12/12/18 04:19 Rouleaux Not Reportable 12/12/18 04:19 Not Reportable 12/12/18 04:19 Not Reportable 12/12/18 04:19 Not Reportable 12/12/18 04:19 Not Reportable 12/12/18 04:19 Hem Pathologist Commnt No 12/12/18 04:19 PT 14.9 Sec. (12.2-14.9) 12/10/18 23:44 INR 1.20 (0.87-1.13) H 12/10/18 23:44 APTT 30.2 Sec. (24.2-36.6) 12/10/18 23:44 362.58 ng/mlDDU (0-234) H 12/10/18 19:37 Sodium 137 mmol/L (137-145) 12/12/18 04:19 Potassium 3.9 mmol/L (3.6-5.0) 12/12/18 04:19 Chloride 107.6 mmol/L (98-107) H 12/12/18 04:19 Carbon Dioxide 19 mmol/L (22-30) L 12/12/18 04:19 14 mmol/L 12/12/18 04:19 BUN 6 mg/dL (7-17) L 12/12/18 04:19 0.8 mg/dL (0.7-1.2) 12/12/18 04:19 Estimated GFR > 60 ml/min 12/12/18 04:19 8 % 12/12/18 04:19 Glucose 110 mg/dL (65-100) H 12/12/18 04:19 Lactic Acid 0.80 mmol/L (0.7-2.0) 12/11/18 07:14 Calcium 8.5 mg/dL (8.4-10.2) 12/12/18 04:19 0.50 mg/dL (0.1-1.2) 12/10/18 19:37 AST 30 units/L (5-40) 12/10/18 19:37 ALT 25 units/L (7-56) 12/10/18 19:37 38 units/L (35-129) 12/10/18 19:37 < 0.010 ng/mL (0.00-0.029) 12/11/18 05:04 8.8 g/dL (6.3-8.2) H 12/10/18 19:37 4.1 g/dL (3.9-5) 12/10/18 19:37 0.9 % 12/10/18 19:37 HCG, Qual Negative (Negative) 12/10/18 19:37 Active Medications - Current Medications Current Medications: Generic Name Dose Route Start Last Admin Trade Name [place] PRN Reason Stop Dose Admin Acetaminophen 650 mg 12/11/18 00:32 Tylenol PO Q4H PRN Pain MILD(1-3)/Fever >100.5/KYLE Enoxaparin Sodium 40 mg 12/11/18 10:00 12/13/18 11:14 Lovenox SUB-Q 40 mg QDAY JORGE Administration Sodium Chloride 1,000 mls @ 100 mls/hr 12/11/18 01:00 12/13/18 03:53 Nacl 0.9% 1000 Ml IV 100 mls/hr DIRECT JORGE Administration Levofloxacin/Dextrose 750 mg in 150 mls @ 100 mls/hr 12/11/18 10:00 12/13/18 11:15 Levaquin 750mg/150ml IV 100 mls/hr Q24HR JORGE Administration Protocol Ibuprofen 600 mg 12/11/18 23:51 12/12/18 19:16 Ibuprofen PO 600 mg Q6H PRN Administration Pain and temp >100.5 Ketorolac Tromethamine 15 mg 12/11/18 01:00 12/13/18 11:15 Toradol IV 12/16/18 00:59 15 mg Q4H JORGE Administration Methylprednisolone Sodium Succinate 40 mg 12/12/18 18:00 12/13/18 06:13 Solu-Medrol IV 40 mg Q12H JORGE Administration Morphine Sulfate 2 mg 12/11/18 00:32 12/12/18 22:17 Morphine IV 2 mg Q4H PRN Administration Pain, Moderate (4-6) Ondansetron HCl 4 mg 12/11/18 00:32 Zofran IV Q8H PRN Nausea And Vomiting Sodium Chloride 10 ml 12/11/18 10:00 12/13/18 11:17 Sodium Chloride Flush Syringe 10 Ml IV 10 ml BID JORGE Administration Sodium Chloride 10 ml 12/11/18 00:32 Sodium Chloride Flush Syringe 10 Ml IV PRN PRN LINE FLUSH
--- NOTE | 2018-12-13 12:52 | Consultation ---
History of Present Illness - Reason for Consult Consult date: 12/13/18 ?septic arthritis, R Requesting physician: DUY SALEEM - History of Present Illness The patient is a 37-year-old female with history of lupus (on plaquenil and azathioprine), fibromyalgia presented to the emergency room on 12/11/2018 with complaints of chest pain as well as right knee pain. She is being seen by cardiology, EKG has been without any acute ST segment changes. VQ scan negative for pulmonary embolism. She reported improvement after starting steroids. Right knee x-ray showed a large right knee effusion. She has a history of arthroscopic right meniscal repair surgery on the right knee on 10/30/2018 at [facility]. She had been doing PT, about 12/03/2018, the right knee started getting swollen, she managed at home with ice and exercises. She also has been having some fevers here, Tmax 102.5F. Due to concern for possible septic arthritis, infectious diseases was consulted. Of note, orthopedics was also consulted, evaluation pending. Review of Systems: General: Fever + HEENT: no new visual disturbance Respiratory: No cough, sputum, hemoptysis or shortness of breath Cardiovascular: chest pain +, no syncope Gastrointestinal: No nausea, vomiting or diarrhea Genitourinary: No dysuria or hematuria Musculoskeletal: No new or worsening neck pain or back pain. Right knee pain. Neurologic: No headaches, seizures Hematologic: No easy bruising or bleeding Endocrine: No night sweats or acute weight loss Skin: negative for rash, jaundice Psychiatric: No suicidal or homicidal ideation Past History Past Medical History: other (lupus) Past Surgical History: Other (meniscus repair) Social history: no significant social history. denies: smoking, alcohol abuse, prescription drug abuse Family history: no significant family history Medications and Allergies Allergies Allergy/AdvReac Type Severity Reaction Status Date / Time acetaminophen [From Vicodin] Allergy Itching Verified 12/10/18 18:56 hydrocodone [From Vicodin] Allergy Itching Verified 12/10/18 18:56 shellfish derived Allergy Itching Verified 12/10/18 18:56 Home Medications Medication Instructions Recorded Confirmed Last Taken Type Flexeril 10 MG TAB 10 mg PO TID 12/13/18 12/13/18 Unknown History Gabapentin [Neurontin] 300 mg PO TID 12/13/18 12/13/18 Unknown History Hydroxychloroquine [Plaquenil] 200 mg PO QDAY 12/13/18 12/13/18 Unknown History azaTHIOprine 150 mg PO QDAY 12/13/18 12/13/18 Unknown History traMADol [Ultram] 50 mg PO QDAY 12/13/18 12/13/18 Unknown History Active Meds: Active Medications Acetaminophen (Tylenol) 650 mg PO Q4H PRN PRN Reason: Pain MILD(1-3)/Fever >100.5/KYLE Enoxaparin Sodium (Lovenox) 40 mg SUB-Q QDAY [facility] Last Admin: 12/13/18 11:14 Dose: 40 mg Documented by: Sodium Chloride (Nacl 0.9% 1000 Ml) 1,000 mls @ 100 mls/hr IV DIRECT [facility] Last Admin: 12/13/18 03:53 Dose: 100 mls/hr Documented by: Levofloxacin/Dextrose (Levaquin 750mg/150ml) 750 mg in 150 mls @ 100 mls/hr IV Q24HR [facility]; Protocol Last Admin: 12/13/18 11:15 Dose: 100 mls/hr Documented by: Ibuprofen (Ibuprofen) 600 mg PO Q6H PRN PRN Reason: Pain and temp >100.5 Last Admin: 12/12/18 19:16 Dose: 600 mg Documented by: Ketorolac Tromethamine (Toradol) 15 mg IV Q4H [facility] Stop: 12/16/18 00:59 Last Admin: 12/13/18 11:15 Dose: 15 mg Documented by: Methylprednisolone Sodium Succinate (Solu-Medrol) 40 mg IV Q12H [facility] Last Admin: 12/13/18 06:13 Dose: 40 mg Documented by: Morphine Sulfate (Morphine) 2 mg IV Q4H PRN PRN Reason: Pain, Moderate (4-6) Last Admin: 12/12/18 22:17 Dose: 2 mg Documented by: Ondansetron HCl (Zofran) 4 mg IV Q8H PRN PRN Reason: Nausea And Vomiting Sodium Chloride (Sodium Chloride Flush Syringe 10 Ml) 10 ml IV BID [facility] Last Admin: 12/13/18 11:17 Dose: 10 ml Documented by: Sodium Chloride (Sodium Chloride Flush Syringe 10 Ml) 10 ml IV PRN PRN PRN Reason: LINE FLUSH Physical Examination - Physical Exam Narrative exam: Physical Exam: Constitutional: Alert, cooperative. No acute distress Head, Ears, Nose: Normocephalic, atraumatic. External ears, nose normal Eyes: Conjunctivae/corneas clear. No icterus. No ptosis. Neck: Supple, no meningeal signs Oral: dentition fair, no thrush Cardiovascular: S1, S2 normal. Respiratory: Good air entry, clear to auscultation bilaterally GI: Soft, non-tender; bowel sounds normal. No peritoneal signs. Right knee swelling, scar well healed, no warmth or redness. Tenderness + Musculoskeletal: No pedal edema, no cyanosis. Skin: No rash or abscess Hem/Lymphatic: No palpable cervical or supraclavicular nodes. No lymphangitis Psych: Mood ok. Affect normal Neurological: Awake, alert, oriented. No gross abnormality - Constitutional Vitals: Vital Signs Temp Pulse Resp BP Pulse Ox 98.0 F 82 18 150/50 98 12/13/18 08:24 12/13/18 08:24 12/13/18 08:24 12/13/18 08:24 12/13/18 08:24 Temperature -Last 24 Hours Temperature 98.0 F Temperature 97.8 F Temperature 98.2 F Temperature 99.5 F Temperature 99.0 F Results - Labs CBC & Chem 7: 12/12/18 04:19 12/12/18 04:19 - Imaging and Cardiology Chest x-ray: report reviewed, image reviewed (Chest x-ray shows no evidence of pneumonia) Assessment and Plan Cultures: 12/11/2018 blood culture: No growth 12/11/2018 nasal MRSA culture: negative A/P: 37-year-old female with history of lupus (on plaquenil and azathioprine), fi bromyalgia admitted with chest and right knee pain: 1) Right knee joint effusion: onset on 12/13/2018. Recent arthroscopic right meniscal repair surgery on the right knee on 10/30/2018 at [facility]. No leukocytosis. Would not start antibiotics at this time, will affect culture yield. Await orthopedics evaluation, will need arthrocentesis to evaluate for septic arthritis. 2) Chest pain, ? Costochondritis versus lupus flare. Cardiology following. Improved with steroids. Chest x-ray negative for pneumonia. 3) Lupus: on plaquenil and azathioprine Recs: Levofloxacin d/iris No leukocytosis. Would not start antibiotics at this time since it will affect culture yield Await orthopedics evaluation, will need arthrocentesis to evaluate for septic arthritis. Please send fluid for cell count with differential and culture. d/w Dr. Saleem. Joe Torrez MD, FACP [facility] ([facility]) C: [phone] O: [phone] F: [phone]
[2018-12-13] MEDS: MORPHINE IV PRN (22:43)
[2018-12-14] MEDS: TORADOL IV SCH ×6 (01:20→21:55)
[2018-12-14] MEDS: NACL 0.9% 1000 ML 1,000 ML IV SCH ×2 (06:21→16:51)
[2018-12-14] MEDS: SOLU-Medrol IV SCH ×2 (06:21→17:52)
[2018-12-14] MEDS: LEVAQUIN 750MG/150ML 750 MG/150 ML BAG IV SCH (10:07)
[2018-12-14] MEDS: LOVENOX SUB-Q SCH (10:07)
[2018-12-14] MEDS: SODIUM CHLORIDE FLUSH SYRINGE 10 ML IV SCH ×2 (10:12→21:54)
--- NOTE | 2018-12-14 10:43 | Progress Note ---
Assessment and Plan Cultures: 12/11/2018 blood culture: No growth 12/11/2018 nasal MRSA culture: negative A/P: 37-year-old female with history of lupus (on plaquenil and azathioprine), fibromyalgia admitted with chest and right knee pain: 1) Right knee joint effusion and fever: onset on 12/13/2018. Recent arthroscopic right meniscal repair surgery on the right knee on 10/30/2018 at [facility]. No leukocytosis. DDx lupus flare (she was on prednisone until 10/30 then changed to plaquenil and azathioprine) v/s septic knee. Now on solumedrol, knee improving, no new fever. 2) Chest pain, ? Costochondritis versus lupus flare. Cardiology following. Improved with steroids. Chest x-ray negative for pneumonia. 3) Lupus: on plaquenil and azathioprine Recs: Stop Levofloxacin today Hold off antibiotics Await orthopedics evaluation, will need arthrocentesis to evaluate for septic a rthritis. Please send fluid for cell count with differential and culture. Will follow Abbi Wang MD Infectious Diseases Radiation / Chemistry Technician [facility] ([facility]) M [phone] O [phone] Subjective Date of service: 12/14/18 Principal diagnosis: chest pain and right knee pain Interval history: Patient feels better, knee pain and edema are down. No fever. Objective - Exam Narrative Exam: General: Alert, cooperative. No acute distress Head, Ears, Nose: Normocephalic, atraumatic. External ears, nose normal Eyes: Conjunctivae/corneas clear. No icterus. No ptosis. Neck: Supple, no meningeal signs Oral: dentition fair, no thrush Cardiovascular: S1, S2 normal. Respiratory: Good air entry, clear to auscultation bilaterally GI: Soft, non-tender; bowel sounds normal. No peritoneal signs. Musculoskeletal: Right knee swelling, scar well healed, no warmth or redness. minimal Tenderness + Skin: No rash or abscess Hem/Lymphatic: No palpable cervical or supraclavicular nodes. No lymphangitis Psych: Mood ok. Affect normal Neurological: Awake, alert, oriented. No gross abnormality - Constitutional Vitals: Vital Signs Temp Pulse Resp BP Pulse Ox 98.6 F 85 18 128/84 96 12/14/18 09:08 12/14/18 09:08 12/14/18 09:08 12/14/18 09:08 12/14/18 09:08 Temperature -Last 24 Hours Temperature 98.6 F Temperature 98.3 F Temperature 98.5 F Temperature 98.2 F Temperature 98.7 F - Labs CBC & Chem 7: 12/12/18 04:19 12/12/18 04:19
--- NOTE | 2018-12-14 11:43 | Progress Note ---
Assessment and Plan Assessment and plan: Chest pain. Etiology likely secondary to costochondritis +/- lupus flare. Chest x-ray negative. Echocardiogram EF 40-45%, mild tricuspid regurgitation, no pericardial effusion Costochondritis. Toradol/pain control. Continue Solu-Medrol twice a day Elevated d-dimer. VQ scan negative. Lower extremity Dopplers negative for DVT. Sinus tachycardia. Monitor on telemetry. Etiology likely secondary to physiologic response to pain. Improving. Right knee pain with effusion. Orthopedics consulted. ? Septic arthritis. Orthopedics consultation pending. Also improved with initiation of steroid SIRS. Fevers resolved. SLE flare. Continue Solu-Medrol twice a day. Begin taper tomorrow Fibromyalgia. Supportive care. History Interval history: Patient reports improvement in her chest pain. Hospitalist Physical - Constitutional Vitals: Temp Pulse Resp BP Pulse Ox 98.6 F 115 H 18 128/84 98 12/14/18 09:08 12/14/18 10:00 12/14/18 10:00 12/14/18 09:08 12/14/18 10:00 General appearance: Present: no acute distress - EENT Eyes: Present: PERRL, EOM intact ENT: hearing intact, clear oral mucosa, dentition normal - Neck Neck: Present: supple, normal ROM - Respiratory Respiratory effort: normal Respiratory: bilateral: CTA - Cardiovascular Rhythm: regular Heart Sounds: Present: S1 & S2. Absent: gallop, rub - Extremities Extremities: no ischemia, No edema, Full ROM - Abdominal General gastrointestinal: soft, non-tender, non-distended, normal bowel sounds - Integumentary Integumentary: Present: clear, warm, dry - Neurologic Neurologic: CNII-XII intact, moves all extremities Results - Labs CBC & Chem 7: 12/12/18 04:19 12/12/18 04:19 Labs: Laboratory Last Values WBC 9.1 K/mm3 (4.5-11.0) 12/12/18 04:19 RBC 3.55 M/mm3 (3.65-5.03) L 12/12/18 04:19 Hgb 10.9 gm/dl (10.1-14.3) 12/12/18 04:19 Hct 32.3 % (30.3-42.9) 12/12/18 04:19 MCV 91 fl (79-97) 12/12/18 04:19 MCH 31 pg (28-32) 12/12/18 04:19 MCHC 34 % (30-34) 12/12/18 04:19 RDW 15.2 % (13.2-15.2) 12/12/18 04:19 Plt Count 212 K/mm3 (140-440) 12/12/18 04:19 Lymph % (Auto) Not Reportable 12/12/18 04:19 Saunders % (Auto) Not Reportable 12/12/18 04:19 Eos % (Auto) Not Reportable 12/12/18 04:19 Baso % (Auto) Not Reportable 12/12/18 04:19 Lymph # Not Reportable 12/12/18 04:19 Saunders # Not Reportable 12/12/18 04:19 Eos # Not Reportable 12/12/18 04:19 Baso # Not Reportable 12/12/18 04:19 Add Manual Diff Complete 12/12/18 04:19 Total Counted 100 12/12/18 04:19 Seg Neutrophils % 79.7 % (40.0-70.0) H 12/11/18 00:48 Seg Neuts % (Manual) 78.0 % (40.0-70.0) H 12/12/18 04:19 1.0 % 12/12/18 04:19 18.0 % (13.4-35.0) 12/12/18 04:19 Reactive Lymphs % (Man) 1.0 % 12/12/18 04:19 2.0 % (0.0-7.3) 12/12/18 04:19 0 % (0.0-4.3) 12/12/18 04:19 0 % (0.0-1.8) 12/12/18 04:19 0 % 12/12/18 04:19 0 % 12/12/18 04:19 0 % 12/12/18 04:19 0 % 12/12/18 04:19 Nucleated RBC % Not Reportable 12/12/18 04:19 Seg Neutrophils # Not Reportable 12/12/18 04:19 Seg Neutrophils # Man 7.1 K/mm3 (1.8-7.7) 12/12/18 04:19 Band Neutrophils # 0.1 K/mm3 07/13/19 04:19 1.6 K/mm3 (1.2-5.4) 12/12/18 04:19 Abs React Lymphs (Man) 0.1 K/mm3 12/12/18 04:19 0.2 K/mm3 (0.0-0.8) 12/12/18 04:19 0.0 K/mm3 (0.0-0.4) 12/12/18 04:19 0.0 K/mm3 (0.0-0.1) 12/12/18 04:19 0.0 K/mm3 12/12/18 04:19 0.0 K/mm3 12/12/18 04:19 0.0 K/mm3 12/12/18 04:19 Blast Cells # 0.0 K/mm3 12/12/18 04:19 WBC Morphology Not Reportable 12/12/18 04:19 Hypersegmented Neuts Not Reportable 12/12/18 04:19 Hyposegmented Neuts Not Reportable 12/12/18 04:19 Hypogranular Neuts Not Reportable 12/12/18 04:19 Not Reportable 12/12/18 04:19 Not Reportable 12/12/18 04:19 Not Reportable 12/12/18 04:19 Not Reportable 12/12/18 04:19 Not Reportable 12/12/18 04:19 Not Reportable 12/12/18 04:19 Consistent w auto 12/12/18 04:19 Not Reportable 12/12/18 04:19 Plt Clumps, EDTA Not Reportable 12/12/18 04:19 Not Reportable 12/12/18 04:19 Not Reportable 12/12/18 04:19 Not Reportable 12/12/18 04:19 Plt Morphology Comment Not Reportable 12/12/18 04:19 RBC Morphology Not Reportable 12/12/18 04:19 Dimorphic RBCs Not Reportable 12/12/18 04:19 Not Reportable 12/12/18 04:19 Not Reportable 12/12/18 04:19 Not Reportable 12/12/18 04:19 Not Reportable 12/12/18 04:19 Not Reportable 12/12/18 04:19 Not Reportable 12/12/18 04:19 Not Reportable 12/12/18 04:19 Not Reportable 07/13/19 04:19 Not Reportable 12/12/18 04:19 Not Reportable 12/12/18 04:19 Not Reportable 12/12/18 04:19 Few 12/12/18 04:19 Not Reportable 12/12/18 04:19 Not Reportable 12/12/18 04:19 Not Reportable 12/12/18 04:19 Not Reportable 12/12/18 04:19 Not Reportable 12/12/18 04:19 Not Reportable 12/12/18 04:19 Not Reportable 12/12/18 04:19 Acanthocytes (Spur) Not Reportable 12/12/18 04:19 Rouleaux Not Reportable 12/12/18 04:19 Not Reportable 12/12/18 04:19 Not Reportable 12/12/18 04:19 Not Reportable 12/12/18 04:19 Not Reportable 12/12/18 04:19 Hem Pathologist Commnt No 12/12/18 04:19 PT 14.9 Sec. (12.2-14.9) 12/10/18 23:44 INR 1.20 (0.87-1.13) H 12/10/18 23:44 APTT 30.2 Sec. (24.2-36.6) 12/10/18 23:44 362.58 ng/mlDDU (0-234) H 12/10/18 19:37 Sodium 137 mmol/L (137-145) 12/12/18 04:19 Potassium 3.9 mmol/L (3.6-5.0) 12/12/18 04:19 Chloride 107.6 mmol/L (98-107) H 12/12/18 04:19 Carbon Dioxide 19 mmol/L (22-30) L 12/12/18 04:19 14 mmol/L 12/12/18 04:19 BUN 6 mg/dL (7-17) L 12/12/18 04:19 0.8 mg/dL (0.7-1.2) 12/12/18 04:19 Estimated GFR > 60 ml/min 12/12/18 04:19 8 % 12/12/18 04:19 Glucose 110 mg/dL (65-100) H 12/12/18 04:19 Lactic Acid 0.80 mmol/L (0.7-2.0) 12/11/18 07:14 Calcium 8.5 mg/dL (8.4-10.2) 12/12/18 04:19 0.50 mg/dL (0.1-1.2) 12/10/18 19:37 AST 30 units/L (5-40) 12/10/18 19:37 ALT 25 units/L (7-56) 12/10/18 19:37 38 units/L (35-129) 12/10/18 19:37 < 0.010 ng/mL (0.00-0.029) 12/11/18 05:04 8.8 g/dL (6.3-8.2) H 12/10/18 19:37 4.1 g/dL (3.9-5) 12/10/18 19:37 0.9 % 12/10/18 19:37 HCG, Qual Negative (Negative) 12/10/18 19:37 Active Medications - Current Medications Current Medications: Generic Name Dose Route Start Last Admin Trade Name Freq PRN Reason Stop Dose Admin Acetaminophen 650 mg 12/11/18 00:32 Tylenol PO Q4H PRN Pain MILD(1-3)/Fever >100.5/KYLE Enoxaparin Sodium 40 mg 12/11/18 10:00 12/14/18 10:07 Lovenox SUB-Q 40 mg QDAY JORGE Administration Sodium Chloride 1,000 mls @ 100 mls/hr 12/11/18 01:00 12/14/18 06:21 Nacl 0.9% 1000 Ml IV 100 mls/hr DIRECT JORGE Administration Ibuprofen 600 mg 12/11/18 23:51 12/12/18 19:16 Ibuprofen PO 600 mg Q6H PRN Administration Pain and temp >100.5 Ketorolac Tromethamine 15 mg 12/11/18 01:00 12/14/18 10:43 Toradol IV 12/16/18 00:59 Not Given Q4H JORGE Methylprednisolone Sodium Succinate 40 mg 12/12/18 18:00 12/14/18 06:21 Solu-Medrol IV 40 mg Q12H JORGE Administration Morphine Sulfate 2 mg 12/11/18 00:32 12/13/18 22:43 Morphine IV 2 mg Q4H PRN Administration Pain, Moderate (4-6) Ondansetron HCl 4 mg 12/11/18 00:32 Zofran IV Q8H PRN Nausea And Vomiting Sodium Chloride 10 ml 12/11/18 10:00 12/14/18 10:12 Sodium Chloride Flush Syringe 10 Ml IV 10 ml BID JORGE Administration Sodium Chloride 10 ml 12/11/18 00:32 Sodium Chloride Flush Syringe 10 Ml IV PRN PRN LINE FLUSH
--- NOTE | 2018-12-14 13:45 | Progress Note ---
Assessment and Plan Anti-inflammatory medications as appropriate. Her chest pain does not appear to be cardiac in origin. - Patient Problems (1) Atypical chest pain Current Visit: Yes Status: Acute (2) Effusion of right knee joint Current Visit: Yes Status: Acute (3) Left ventricular systolic dysfunction Current Visit: Yes Status: Acute (4) History of lupus Current Visit: Yes Status: Chronic Subjective Date of service: 12/14/18 Principal diagnosis: Atypical CP, R knee jt effusion, LV systolic dysfunction, h/o Lupus Interval history: Her chest pain is better. Objective Vital Signs Temp Pulse Pulse Pulse Pulse Resp BP 12/14/18 10:00 69 115 H 115 H 115 H 18 12/14/18 09:08 98.6 F 85 18 128/84 12/14/18 03:56 98.3 F 115 H 20 120/77 12/13/18 22:55 98.5 F 115 H 20 112/77 12/13/18 20:00 98.2 F 90 18 12/13/18 16:24 98.7 F 107 H 18 119/76 BP Pulse Ox 12/14/18 10:00 98 12/14/18 09:08 96 12/14/18 03:56 98 12/13/18 22:55 98 12/13/18 20:00 124/77 100 12/13/18 16:24 100 - Physical Examination General: No Apparent Distress HEENT: Positive: EOMI, Normocephaly, Mucus Membranes Moist Neck: Positive: neck supple, trachea midline Cardiac: Positive: Reg Rate and Rhythm, S1/S2 Lungs: Positive: clear to auscultation Neuro: Positive: Grossly Intact Abdomen: Positive: Soft, Active Bowel Sounds. Negative: Tender Skin: Negative: Rash Musculoskeletal: other (tender over the substernal chest area; swollen right knee joint with tenderness.) Extremities: Present: Other (swollen right knee joint with tenderness.) - Telemetry EKG Rhythm: Sinus Tachycardia - EKG Sinus rhythms and dysrhythmias: sinus tachycardia
--- NOTE | 2018-12-14 14:04 | Consultation ---
History of Present Illness - HPI Consult date: 12/14/18 Consult reason: joint pain History of present illness: 37-year-old female with history of lupus, fibromyalgia presented to ED with complaint of chest pain, right leg pain and swelling, history significant for right knee arthroscopy on 10/30/18 at outside facility. States knee just all of a sudden started swelling, temp elevated in ED but serum WBC normal...currently states knee better with medication able to move more now than before... Past History Past Medical History: other (lupus) Past Surgical History: Other (meniscus repair) Social history: no significant social history. denies: smoking, alcohol abuse, prescription drug abuse Family history: no significant family history Medications and Allergies Allergies Allergy/AdvReac Type Severity Reaction Status Date / Time acetaminophen [From Vicodin] Allergy Itching Verified 12/10/18 18:56 hydrocodone [From Vicodin] Allergy Itching Verified 12/10/18 18:56 shellfish derived Allergy Itching Verified 12/10/18 18:56 Home Medications Medication Instructions Recorded Confirmed Last Taken Type Flexeril 10 MG TAB 10 mg PO TID 12/13/18 12/13/18 Unknown History Gabapentin [Neurontin] 300 mg PO TID 12/13/18 12/13/18 Unknown History Hydroxychloroquine [Plaquenil] 200 mg PO QDAY 12/13/18 12/13/18 Unknown History azaTHIOprine 150 mg PO QDAY 12/13/18 12/13/18 Unknown History traMADol [Ultram] 50 mg PO QDAY 12/13/18 12/13/18 Unknown History Active Meds: Active Medications Acetaminophen (Tylenol) 650 mg PO Q4H PRN PRN Reason: Pain MILD(1-3)/Fever >100.5/KYLE Enoxaparin Sodium (Lovenox) 40 mg SUB-Q QDAY JORGE Last Admin: 12/14/18 10:07 Dose: 40 mg Documented by: Sodium Chloride (Nacl 0.9% 1000 Ml) 1,000 mls @ 100 mls/hr IV DIRECT JORGE Last Admin: 12/14/18 06:21 Dose: 100 mls/hr Documented by: Ibuprofen (Ibuprofen) 600 mg PO Q6H PRN PRN Reason: Pain and temp >100.5 Last Admin: 12/12/18 19:16 Dose: 600 mg Documented by: Ketorolac Tromethamine (Toradol) 15 mg IV Q4H [facility] Stop: 12/16/18 00:59 Last Admin: 12/14/18 10:43 Dose: Not Given Documented by: Methylprednisolone Sodium Succinate (Solu-Medrol) 40 mg IV Q12H [facility] Last Admin: 12/14/18 06:21 Dose: 40 mg Documented by: Morphine Sulfate (Morphine) 2 mg IV Q4H PRN PRN Reason: Pain, Moderate (4-6) Last Admin: 12/13/18 22:43 Dose: 2 mg Documented by: Ondansetron HCl (Zofran) 4 mg IV Q8H PRN PRN Reason: Nausea And Vomiting Sodium Chloride (Sodium Chloride Flush Syringe 10 Ml) 10 ml IV BID [facility] Last Admin: 12/14/18 10:12 Dose: 10 ml Documented by: Sodium Chloride (Sodium Chloride Flush Syringe 10 Ml) 10 ml IV PRN PRN PRN Reason: LINE FLUSH Physical Examination - Physical exam Narrative exam: right knee - healing stab wounds, no redness/erythema, good active ROM... Eyes: PERRL ENT: Positive: clear oral mucosa Respiratory effort: normal Respiratory: bilateral: CTA Rhythm: regular Heart Sounds: Positive: S1 & S2 General gastrointestinal: Positive: soft, non-tender, non-distended, normal bowel sounds Integumentary: clear, warm, dry Neurologic: Positive: CNII-XII intact, moves all extremities, gait normal. Negative: focal deficits Assessment and Plan s/p right knee arthroscopy with suspected post op synovitis, resolving... continue po meds, maybe discharge to home, follow up with orthopedist who performed knee scope after dc
[2018-12-14] MEDS: MORPHINE IV PRN ×2 (17:56→22:29)
[2018-12-15] MEDS: TORADOL IV SCH ×5 (00:21→17:58)
[2018-12-15] MEDS: NACL 0.9% 1000 ML 1,000 ML IV SCH ×2 (02:41→13:08)
[2018-12-15] MEDS: SOLU-Medrol IV SCH ×2 (06:15→17:58)
[2018-12-15] MEDS: MORPHINE IV PRN (06:17)
[2018-12-15 06:36] LABS: Hematocrit 32.9 % (30.3-42.9); Hemoglobin 11.1 gm/dl (10.1-14.3); Lymphocytes # (Auto) 0.9 K/mm3 (1.2-5.4); Lymphocytes % (Auto) 8.5 % (13.4-35.0); Mean Corpuscular HGB Conc 34 % (30-34); Mean Corpuscular Volume 91 fl (79-97); Monocytes # (Auto) 0.7 K/mm3 (0.0-0.8); Monocytes % (Auto) 6.3 % (0.0-7.3); Platelet Count 304 K/mm3 (140-440); Red Blood Count 3.62 M/mm3 (3.65-5.03); Red Cell Distribution Width 15.7 % (13.2-15.2)
[2018-12-15 06:58] LABS: BUN/Creatinine Ratio 15; Blood Urea Nitrogen 12 mg/dL (7-17); Calcium 8.4 mg/dL (8.4-10.2); Hemolysis Index 17
[2018-12-15] MEDS: LOVENOX SUB-Q SCH (09:34)
[2018-12-15] MEDS: SODIUM CHLORIDE FLUSH SYRINGE 10 ML IV SCH (09:35)
--- NOTE | 2018-12-15 11:36 | Progress Note ---
Assessment and Plan Stable cardiac status. F/u at our office in 2-3 weeks after DC. - Patient Problems (1) Atypical chest pain Current Visit: Yes Status: Acute (2) Effusion of right knee joint Current Visit: Yes Status: Acute (3) Left ventricular systolic dysfunction Current Visit: Yes Status: Acute (4) History of lupus Current Visit: Yes Status: Chronic Subjective Date of service: 12/15/18 Principal diagnosis: Atypical CP, R knee jt effusion, LV systolic dysfunction, h/o Lupus Interval history: No chest pain. Objective Vital Signs Temp Pulse Resp Resp BP BP BP 12/15/18 08:05 98.4 F 81 16 164/103 159/100 12/15/18 07:45 159/100 12/15/18 06:47 18 12/15/18 06:17 18 12/15/18 03:29 98.4 F 80 18 137/82 12/15/18 00:21 18 12/14/18 22:59 18 12/14/18 22:54 18 12/14/18 22:51 98.2 F 76 20 130/80 12/14/18 22:29 18 12/14/18 20:29 98.8 F 75 19 143/78 12/14/18 20:24 18 12/14/18 16:16 98.5 F 77 18 142/91 12/14/18 12:00 80 Pulse Ox 12/15/18 08:05 98 12/15/18 07:45 12/15/18 06:47 12/15/18 06:17 12/15/18 03:29 99 12/15/18 00:21 12/14/18 22:59 12/14/18 22:54 12/14/18 22:51 96 12/14/18 22:29 12/14/18 20:29 97 12/14/18 20:24 98 12/14/18 16:16 99 12/14/18 12:00 - Physical Examination General: No Apparent Distress HEENT: Positive: EOMI, Normocephaly, Mucus Membranes Moist Neck: Positive: neck supple, trachea midline Cardiac: Positive: Reg Rate and Rhythm, S1/S2 Lungs: Positive: clear to auscultation Neuro: Positive: Grossly Intact Abdomen: Positive: Soft, Active Bowel Sounds. Negative: Tender Skin: Negative: Rash Musculoskeletal: other (tender over the substernal chest area; swollen right knee joint with tenderness.) Extremities: Present: Other (swollen right knee joint with tenderness.) - Labs and Meds CBC 12/15/18 Range/Units 05:58 WBC 11.1 H (4.5-11.0) K/mm3 RBC 3.62 L (3.65-5.03) M/mm3 Hgb 11.1 (10.1-14.3) gm/dl Hct 32.9 (30.3-42.9) % Plt Count 304 (140-440) K/mm3 Lymph # 0.9 L (1.2-5.4) K/mm3 [place] # 0.7 (0.0-0.8) K/mm3 Eos # 0.0 (0.0-0.4) K/mm3 Baso # 0.0 (0.0-0.1) K/mm3 Comprehensive Metabolic Panel 12/15/18 Range/Units 05:58 Sodium 142 (137-145) mmol/L Potassium 4.2 (3.6-5.0) mmol/L Chloride 112.7 H (98-107) mmol/L Carbon Dioxide 20 L (22-30) mmol/L BUN 12 (7-17) mg/dL Creatinine 0.8 (0.7-1.2) mg/dL Glucose 198 H (65-100) mg/dL Calcium 8.4 (8.4-10.2) mg/dL - EKG Sinus rhythms and dysrhythmias: sinus tachycardia
--- NOTE | 2018-12-15 11:44 | Progress Note ---
Assessment and Plan Assessment and plan: Chest pain. Etiology likely secondary to costochondritis +/- lupus flare. Chest x-ray negative. Echocardiogram EF 40-45%, mild tricuspid regurgitation, no pericardial effusion Costochondritis. Toradol/pain control. Continue Solu-Medrol twice a day Elevated d-dimer. VQ scan negative. Lower extremity Dopplers negative for DVT. Sinus tachycardia. Monitor on telemetry. Etiology likely secondary to physiologic response to pain. Improving. Right knee pain with effusion. Orthopedics consulted. ? Septic arthritis. Orthopedics consultation pending. Also improved with initiation of steroid SIRS. Fevers resolved. SLE flare. Continue Solu-Medrol twice a day. Begin taper tomorrow Fibromyalgia. Supportive care. Hospitalist Physical - Constitutional Vitals: Temp Pulse Resp BP Pulse Ox 98.4 F 81 16 159/100 98 12/15/18 08:05 12/15/18 08:05 12/15/18 08:05 12/15/18 08:05 12/15/18 08:05 General appearance: Present: no acute distress Results - Labs CBC & Chem 7: 12/15/18 05:58 12/15/18 05:58 Labs: Laboratory Last Values WBC 11.1 K/mm3 (4.5-11.0) H 12/15/18 05:58 RBC 3.62 M/mm3 (3.65-5.03) L 12/15/18 05:58 Hgb 11.1 gm/dl (10.1-14.3) 12/15/18 05:58 Hct 32.9 % (30.3-42.9) 12/15/18 05:58 MCV 91 fl (79-97) 12/15/18 05:58 MCH 31 pg (28-32) 12/15/18 05:58 MCHC 34 % (30-34) 12/15/18 05:58 RDW 15.7 % (13.2-15.2) H 12/15/18 05:58 Plt Count 304 K/mm3 (140-440) 12/15/18 05:58 Lymph % (Auto) 8.5 % (13.4-35.0) L 12/15/18 05:58 [place] % (Auto) 6.3 % (0.0-7.3) 12/15/18 05:58 Eos % (Auto) 0.0 % (0.0-4.3) 12/15/18 05:58 Baso % (Auto) 0.0 % (0.0-1.8) 12/15/18 05:58 Lymph # 0.9 K/mm3 (1.2-5.4) L 12/15/18 05:58 [place] # 0.7 K/mm3 (0.0-0.8) 12/15/18 05:58 Eos # 0.0 K/mm3 (0.0-0.4) 12/15/18 05:58 Baso # 0.0 K/mm3 (0.0-0.1) 12/15/18 05:58 Add Manual Diff Complete 12/12/18 04:19 Total Counted 100 12/12/18 04:19 Seg Neutrophils % 85.2 % (40.0-70.0) H 12/15/18 05:58 Seg Neuts % (Manual) 78.0 % (40.0-70.0) H 12/12/18 04:19 1.0 % 12/12/18 04:19 18.0 % (13.4-35.0) 12/12/18 04:19 Reactive Lymphs % (Man) 1.0 % 12/12/18 04:19 2.0 % (0.0-7.3) 12/12/18 04:19 0 % (0.0-4.3) 12/12/18 04:19 0 % (0.0-1.8) 12/12/18 04:19 0 % 12/12/18 04:19 0 % 12/12/18 04:19 0 % 12/12/18 04:19 0 % 12/12/18 04:19 Nucleated RBC % Not Reportable 12/12/18 04:19 Seg Neutrophils # 9.5 K/mm3 (1.8-7.7) H 12/15/18 05:58 Seg Neutrophils # Man 7.1 K/mm3 (1.8-7.7) 12/12/18 04:19 Band Neutrophils # 0.1 K/mm3 12/12/18 04:19 1.6 K/mm3 (1.2-5.4) 12/12/18 04:19 Abs React Lymphs (Man) 0.1 K/mm3 12/12/18 04:19 0.2 K/mm3 (0.0-0.8) 12/12/18 04:19 0.0 K/mm3 (0.0-0.4) 12/12/18 04:19 0.0 K/mm3 (0.0-0.1) 12/12/18 04:19 0.0 K/mm3 12/12/18 04:19 0.0 K/mm3 12/12/18 04:19 0.0 K/mm3 12/12/18 04:19 Blast Cells # 0.0 K/mm3 12/12/18 04:19 WBC Morphology Not Reportable 12/12/18 04:19 Hypersegmented Neuts Not Reportable 12/12/18 04:19 Hyposegmented Neuts Not Reportable 12/12/18 04:19 Hypogranular Neuts Not Reportable 12/12/18 04:19 Not Reportable 12/12/18 04:19 Not Reportable 12/12/18 04:19 Not Reportable 12/12/18 04:19 Not Reportable 12/12/18 04:19 Not Reportable 12/12/18 04:19 Not Reportable 12/12/18 04:19 Consistent w auto 12/12/18 04:19 Not Reportable 12/12/18 04:19 Plt Clumps, EDTA Not Reportable 12/12/18 04:19 Not Reportable 12/12/18 04:19 Not Reportable 12/12/18 04:19 Not Reportable 12/12/18 04:19 Plt Morphology Comment Not Reportable 12/12/18 04:19 RBC Morphology Not Reportable 12/12/18 04:19 Dimorphic RBCs Not Reportable 12/12/18 04:19 Not Reportable 12/12/18 04:19 Not Reportable 12/12/18 04:19 Not Reportable 12/12/18 04:19 Not Reportable 12/12/18 04:19 Not Reportable 12/12/18 04:19 Not Reportable 12/12/18 04:19 Not Reportable 12/12/18 04:19 Not Reportable 12/12/18 04:19 Not Reportable 12/12/18 04:19 Not Reportable 12/12/18 04:19 Not Reportable 12/12/18 04:19 Few 12/12/18 04:19 Not Reportable 12/12/18 04:19 Not Reportable 12/12/18 04:19 Not Reportable 12/12/18 04:19 Not Reportable 12/12/18 04:19 Not Reportable 12/12/18 04:19 Not Reportable 12/12/18 04:19 Not Reportable 12/12/18 04:19 Acanthocytes (Spur) Not Reportable 12/12/18 04:19 Rouleaux Not Reportable 12/12/18 04:19 Not Reportable 12/12/18 04:19 Not Reportable 12/12/18 04:19 Not Reportable 12/12/18 04:19 Not Reportable 12/12/18 04:19 Hem Pathologist Commnt No 12/12/18 04:19 PT 14.9 Sec. (12.2-14.9) 12/10/18 23:44 INR 1.20 (0.87-1.13) H 12/10/18 23:44 APTT 30.2 Sec. (24.2-36.6) 12/10/18 23:44 362.58 ng/mlDDU (0-234) H 12/10/18 19:37 Sodium 142 mmol/L (137-145) 12/15/18 05:58 Potassium 4.2 mmol/L (3.6-5.0) 12/15/18 05:58 Chloride 112.7 mmol/L (98-107) H 12/15/18 05:58 Carbon Dioxide 20 mmol/L (22-30) L 12/15/18 05:58 14 mmol/L 12/15/18 05:58 BUN 12 mg/dL (7-17) 12/15/18 05:58 0.8 mg/dL (0.7-1.2) 12/15/18 05:58 Estimated GFR > 60 ml/min 12/15/18 05:58 15 % 12/15/18 05:58 Glucose 198 mg/dL (65-100) H 12/15/18 05:58 Lactic Acid 0.80 mmol/L (0.7-2.0) 12/11/18 07:14 Calcium 8.4 mg/dL (8.4-10.2) 12/15/18 05:58 0.50 mg/dL (0.1-1.2) 12/10/18 19:37 AST 30 units/L (5-40) 12/10/18 19:37 ALT 25 units/L (7-56) 12/10/18 19:37 38 units/L (35-129) 12/10/18 19:37 < 0.010 ng/mL (0.00-0.029) 12/11/18 05:04 8.8 g/dL (6.3-8.2) H 12/10/18 19:37 4.1 g/dL (3.9-5) 12/10/18 19:37 0.9 % 12/10/18 19:37 HCG, Qual Negative (Negative) 12/10/18 19:37 Active Medications - Current Medications Current Medications: Generic Name Dose Route Start Last Admin Trade Name Freq PRN Reason Stop Dose Admin Acetaminophen 650 mg 12/11/18 00:32 Tylenol PO Q4H PRN Pain MILD(1-3)/Fever >100.5/KYLE Enoxaparin Sodium 40 mg 12/11/18 10:00 12/15/18 09:34 Lovenox SUB-Q 40 mg QDAY JORGE Administration Sodium Chloride 1,000 mls @ 100 mls/hr 12/11/18 01:00 12/15/18 02:41 Nacl 0.9% 1000 Ml IV 100 mls/hr DIRECT JORGE Administration Ibuprofen 600 mg 12/11/18 23:51 12/12/18 19:16 Ibuprofen PO 600 mg Q6H PRN Administration Pain and temp >100.5 Ketorolac Tromethamine 15 mg 12/11/18 01:00 12/15/18 08:51 Toradol IV 12/16/18 00:59 Not Given Q4H JORGE Methylprednisolone Sodium Succinate 40 mg 12/12/18 18:00 12/15/18 06:15 Solu-Medrol IV 40 mg Q12H JORGE Administration Morphine Sulfate 2 mg 12/11/18 00:32 12/15/18 06:17 Morphine IV 2 mg Q4H PRN Administration Pain, Moderate (4-6) Ondansetron HCl 4 mg 12/11/18 00:32 Zofran IV Q8H PRN Nausea And Vomiting Sodium Chloride 10 ml 12/11/18 10:00 12/15/18 09:35 Sodium Chloride Flush Syringe 10 Ml IV 10 ml BID JORGE Administration Sodium Chloride 10 ml 12/11/18 00:32 Sodium Chloride Flush Syringe 10 Ml IV PRN PRN LINE FLUSH
--- NOTE | 2018-12-15 12:48 | Progress Note ---
Assessment and Plan Cultures: 12/11/2018 blood culture: No growth 12/11/2018 nasal MRSA culture: negative A/P: 37-year-old female with history of lupus (on plaquenil and azathioprine), fibromyalgia admitted with chest and right knee pain: 1) Right knee joint effusion and fever: onset on 12/13/2018. Recent arthroscopic right meniscal repair surgery on the right knee on 10/30/2018 at [facility]. No leukocytosis. DDx lupus flare (she was on prednisone until 10/30 then changed to plaquenil and azathioprine) v/s post op synovitis. Now on solumedrol, knee improving, no new fever. 2) Chest pain, ? Costochondritis versus lupus flare. Cardiology following. Improved with steroids. Chest x-ray negative for pneumonia. 3) Lupus: on plaquenil and azathioprine Recs: Hold off antibiotics reviewed ortho consultation, no aspiration indicated per ortho Ok to d/c home from ID stand point and f/u with ortho Will sign off Abbi Wang MD Infectious Diseases Data Entry Machine Operator [facility] M [phone] O [phone] Subjective Date of service: 12/15/18 Principal diagnosis: Atypical CP, R knee jt effusion, LV systolic dysfunction, h/o Lupus Interval history: Patient feels better, knee pain and edema are down. No fever. Objective - Exam Narrative Exam: General: Alert, cooperative. No acute distress Head, Ears, Nose: Normocephalic, atraumatic. External ears, nose normal Eyes: Conjunctivae/corneas clear. No icterus. No ptosis. Neck: Supple, no meningeal signs Oral: dentition fair, no thrush Cardiovascular: S1, S2 normal. Respiratory: Good air entry, clear to auscultation bilaterally GI: Soft, non-tender; bowel sounds normal. No peritoneal signs. Musculoskeletal: Right knee swelling, scar well healed, no warmth or redness. minimal Tenderness + Skin: No rash or abscess Hem/Lymphatic: No palpable cervical or supraclavicular nodes. No lymphangitis Psych: Mood ok. Affect normal Neurological: Awake, alert, oriented. No gross abnormality - Constitutional Vitals: Vital Signs Temp Pulse Resp BP Pulse Ox 98.4 F 81 16 159/100 98 12/15/18 08:05 12/15/18 08:05 12/15/18 08:05 12/15/18 08:05 12/15/18 08:05 Temperature -Last 24 Hours Temperature 98.4 F Temperature 98.4 F Temperature 98.2 F Temperature 98.8 F Temperature 98.5 F - Labs CBC & Chem 7: 12/15/18 05:58 12/15/18 05:58 Labs: Abnormal lab results 12/15/18 12/15/18 Range/Units 05:58 05:58 WBC 11.1 H (4.5-11.0) K/mm3 RBC 3.62 L (3.65-5.03) M/mm3 RDW 15.7 H (13.2-15.2) % Lymph % (Auto) 8.5 L (13.4-35.0) % Lymph # 0.9 L (1.2-5.4) K/mm3 Seg Neutrophils % 85.2 H (40.0-70.0) % Seg Neutrophils # 9.5 H (1.8-7.7) K/mm3 Chloride 112.7 H (98-107) mmol/L Carbon Dioxide 20 L (22-30) mmol/L Glucose 198 H (65-100) mg/dL
[2018-12-15] MEDS ORDERED: APRESOLINE IV ONE (14:12)
[2018-12-15 15:15] VITALS: BP 145/80
--- NOTE | 2018-12-15 16:17 | Discharge Summary ---
Providers - Providers Date of Admission: 12/14/18 09:42 Date of discharge: 12/15/18 Attending physician: BELINDA CONROY 12/11/18 Consult to Cardiac Rehabilitation [CONS] Routine Reason For Exam: Phase I 12/11/18 00:32 Consult to Cardiology [CONS] Routine Consulting Provider: JOSE ECKERT Reason For Exam: cp 12/11/18 15:02 Consult to Physician [CONS] Routine Comment: Consulting Provider: LISE KENDRICK Physician Instructions: Reason For Exam: sepsis, r/o septic arthritis 12/11/18 15:03 Consult to Physician [CONS] Routine Comment: Consulting Provider: SRIKANTH TOMPKINS Physician Instructions: Reason For Exam: r/o septic arthritis [facility] Condition: Fair Hospital course: Patient is 37-year-old female with history of lupus, fibromyalgia presented to ED with complaint of chest pain, right knee pain and swelling. Patient reports recent right knee surgery approximately 1.5 months earlier. Patient states surgery went well, pain had resolved in the knee until one week ago. Patient states she began having pain in the back of her right knee, and swelling in the knee and right lower leg. Patient was seen and evaluated in ED, admitted. She was evaluated by hog scalder, determined chest pain to be non-cardiac, atypical due to lupus flare.She had a fever and was evaluated by ID Physician. Also she was seen by Orthopedic Surgeon who did not recommend arthrocentesis. Pain subsided and she was discharged home on 12/15/18. Total time spent on discharge, 32 mins Disposition: DC-01 TO HOME OR SELFCARE - Discharge Diagnoses (1) Atypical chest pain Status: Acute (2) Chest pain Status: Acute (3) Effusion of right knee joint Status: Acute (4) Fever Status: Acute (5) Pain and swelling of right knee Status: Acute (6) Lupus (systemic lupus erythematosus) Status: Acute (7) Exacerbation of systemic lupus erythematosus Status: Acute Core Measure Documentation - Palliative Care Palliative Care/ Comfort Measures: Not Applicable - Core Measures Any of the following diagnoses?: none Exam - Constitutional Vitals: Temp Pulse Resp BP Pulse Ox 98.0 F 84 16 145/80 97 12/15/18 11:22 12/15/18 15:15 12/15/18 11:22 12/15/18 15:15 12/15/18 11:22 Plan Activity: no restrictions Diet: low fat, low cholesterol, low salt Additional Instructions: 1.Follow up with PCP in 1 week. 2.Follow up with Dr. Nj, Cardiology in 2 weeks. 3.Follow up with Dr. Tompkins, Ortho in 1 week. 4.Do serum BMP in 2 weeks to be followed by PCP. [facility] Care Provider[facility] - 3-5 Days Prescriptions: Ibuprofen [Motrin 400 MG tab] 400 mg PO Q8H PRN #20 tablet PRN Reason: Pain , Severe (7-10) Famotidine [Pepcid] 20 mg PO BID #30 tablet Lisinopril [Zestril TAB] 10 mg PO QDAY #30 tablet
== END 2018-12-15 18:34 | disposition home or self-care (01) | DRG 546 ==
LOC: ED 18:54 → INTOOBSV 12-11 00:32 → 4A 12-11 00:32 → OBSVTOIN 12-14 09:42
PROVIDERS: ADMIT Hospitalist; ATTEND Internal Medicine
DX: M32.9 Systemic lupus erythematosus, unspecified (principal); R65.10 Systemic inflammatory response syndrome (SIRS) of non-infectious origin without acute organ dysfunction; M94.0 Chondrocostal junction syndrome [Tietze]; M79.7 Fibromyalgia; J45.909 Unspecified asthma, uncomplicated; Z96.651 Presence of right artificial knee joint; M25.461 Effusion, right knee; Z88.5 Allergy status to narcotic agent; Z91.013 Allergy to seafood; Z72.89 Other problems related to lifestyle
CPT/HCPCS: 36415; 71046; 78582; 80048; 80053; 82140; 84484; 84703; 85007; 85025; 85379; 85610; 85730; 87040; 87116; 93005; 93010; 93306; 93970; G0378; A9540; A9558; J0360; J1650; J1885; J1956; J2270; J2405; J2920; J7030